=== PATIENT | female | born 1945 | race Caucasian/White ===

== ENCOUNTER 2018-02-17 21:02 | Emergency (ER) | payer OTHER ==
--- OUTSIDE RECORDS SUMMARY | 2018-02-17 21:04 | XMS REPORT | Summary of Care ---
:1945 Author Organization [facility] Address [id number] [place] [address], [address] [address]- Encounter HQ Lacey(FIN) [phone] Date(s): 02/25/17 - 02/25/17 [facility] [id number] [place] [address], [address] [address]- [phone] Discharge Disposition: Home or Self Care Attending Physician: Sharonda Salazar MD Vital Signs Most recent to oldest [Reference Range]: 1 Height 154.94 cm (02/25/17 1:45 PM) Temperature Oral [96.4-99.1 DegF] 97.4 DegF (02/25/17 1:45 PM) Blood Pressure [90-140/60-90 mmHg] 131/84 mmHg (02/25/17 1:45 PM) Peripheral Pulse Rate [60-100 bpm] 89 bpm (02/25/17 1:45 PM) Weight 77.727 kg (02/25/17 1:45 PM) Body Mass Index 32.38 m2 (02/25/17 1:45 PM) Problem List Condition Effective Dates Status Health Status Informant Arthritis(Confirmed) Resolved Asthma(Confirmed) Resolved Bronchiectasis(Confirmed) Active CLL (chronic lymphocytic Active leukemia)(Confirmed) Hypertension(Confirmed) Resolved Mycobacterium avium Active infection(Confirmed) Leukemia(Confirmed) Resolved Obesity(Confirmed) Active Osteopenia(Confirmed) Active Osteopetrosis(Confirmed) Resolved Osteoporosis(Confirmed) < 06/25/15 Resolved Prediabetes(Confirmed) Active Allergies, Adverse Reactions, Alerts Substance Reaction Severity Status penicillins Active Medications Diovan HCT 12.5 mg-320 mg oral tablet 1 tab, PO, Daily, # 90 tab, 1 Refill(s), Pharmacy: [facility] [id number] Start Date: 02/25/17 Status: OrderedVerelan PM 300 mg/24 hours oral capsule, extended release 300 mg=1 cap, PO, Bedtime, # 90 caplet, 1 Refill(s), Pharmacy: [id number] Start Date: 02/25/17 Status: Ordered Results No data available for this section Immunizations Given and Recorded Vaccine Date Status Refusal Reason influenza virus vaccine, inactivated1 11/16/16 Recorded 1Result Comment: [01/04/2017] at [facility] Procedures Procedure Date Related Diagnosis Body Site Status Date of last mammogram1 12/14/16 Completed Mammogram2 12/14/16 Completed Glaucoma screening3 10/25/16 Completed Colonoscopy 02/2015 Completed History of back surgery Completed Right leg Completed 1negative for malignancy, done at [address], [email or web address], follows with optho in Dr.Leilin Braeden Social History Social History Type Response Exercise Exercise duration: 30. Exercise frequency: 3-4 times/week. Exercise type: Walking. Employment/School Status: Retired.1 Alcohol Current, Frequency: 1-2 times per week. Smoking Status Former smoker; Exposure to Tobacco Smoke None; Cigarette Smoking Last 365 Days No; Reg Smoking Cessation Counseling No entered on: 02/25/17 1married Assessment and Plan No data available for this section
--- OUTSIDE RECORDS SUMMARY | 2018-02-17 21:04 | XMS REPORT | Clinical Summary ---
:1945 Author Organization [facility] Address [address] [place] [address] Care Team Providers Name Role Phone Unavailable Primary Care Provider Unavailable Allergies Not on File Medications Not on file Active Problems Not on file Encounters Date Type Specialty Care Team Description 02/03/2018 Lab Lab Lars Castro MD Dyspnea, unspecified type (Primary Dx); Acute respiratory insufficiency after 02/16/2017 Social History Tobacco Use Types Packs/Day Years Used Date Never Assessed Sex Assigned at Date Recorded Not on file Job Start Date Occupation Industry Not on file Not on file Not on file Travel History Travel Start Travel End No recent travel history available. Last Filed Vital Signs Not on file Plan of Treatment Health Maintenance Due Date Last Done Comments BREAST CANCER SCREENING 1994 COLON CANCER SCREENING 1994 SHINGLES VACCINES (1 of 2) 1994 PNEUMOCOCCAL POLYSACCHARIDE VACCINE AGE 65 2009 AND OVER PNEUMOCOCCAL-13 2009 INFLUENZA VACCINE Completed 10/18/2017, 11/07/2012 Procedures Procedure Name Priority Date/Time Associated Diagnosis Comments IMMUNCAP SCORE Routine 02/03/2018 3:00 Results for this PM [facility] procedure are in the results section. MISCELLANEOUS REFERRAL Routine 02/03/2018 3:00 Dyspnea, unspecified Results for this TEST [facility] type procedure are in Acute respiratory the results insufficiency section. EOSINOPHIL COUNT Routine 02/03/2018 3:00 Dyspnea, unspecified Results for this ABSOLUTE PM [facility] type procedure are in Acute respiratory the results insufficiency section. IMMUNOGLOBULIN E Routine 02/03/2018 3:00 Dyspnea, unspecified Results for this PM [facility] type procedure are in Acute respiratory the results insufficiency section. ANTI-NEUTROPHILIC Routine 02/03/2018 3:00 Dyspnea, unspecified Results for this CYTOPLASMIC ABS PANEL [facility] type procedure are in Acute respiratory the results insufficiency section. ALLERGEN, REGION 10 Routine 02/03/2018 3:00 Dyspnea, unspecified Results for this RESPIRATORY KENNEY IGE PM [facility] type procedure are in Acute respiratory the results insufficiency section. after 02/16/2017 Results Allergen, region 10 respiratory kenney IgE (02/03/2018 3:00 PM [facility]) IgE 11 <=214 [facility] Comment: REFERENCE INTERVAL: Immunoglobulin E, Serum Access complete set of age- and/or gender-specific reference intervals for this test in the [facility] Test Directory ([employer]). Allergen, mites, D. farinae <0.10 <=0.34 [facility] IgE Allergen, mites, D. <0.10 <=0.34 [facility] pteronyssinus IgE Allergen, animal, cat dander 0.29 <=0.34 [facility] IgE Allergen, animal, dog dander 0.94 (H) <=0.34 [facility] IgE Allergen, grass, [place] 0.11 <=0.34 [facility] grass IgE Allergen, grass, Alfred <0.10 <=0.34 [facility] grass IgE Allergen, insect, cockroach, <0.10 <=0.34 [facility] Lithuanian IgE Allergen, fungi/mold, A. <0.10 <=0.34 [facility] alternata IgE Allergen, fungi/mold, A. <0.10 <=0.34 [facility] fumigatus IgE Allergen, fungi/mold, <0.10 <=0.34 [facility] Hormodendrum IgE Allergen, fundi/mold, P. <0.10 <=0.34 [facility] notatum IgE Allergen, tree, box <0.10 <=0.34 [facility] elder/maple tree IgE Allergen, tree, birch tree <0.10 <=0.34 [facility] IgE Allergen, tree, cottonwood <0.10 <=0.34 [facility] tree IgE Allergen, tree, elm tree IgE <0.10 <=0.34 [facility] Allergen, tree, mountain <0.10 <=0.34 [facility] cedar tree IgE Allergen, tree, white <0.10 <=0.34 [facility] mulberry tree IgE Allergen, tree, oak tree IgE 0.13 <=0.34 [facility] Allergen, tree, pecan tree <0.10 <=0.34 [facility] IgE Allergen, tree, white josh 0.13 <=0.34 [facility] tree IgE Allergen, weed, pigweed IgE <0.10 <=0.34 [facility] Allergen, weed, common/short <0.10 <=0.34 [facility] ragweed IgE Allergen, weed, nettle IgE <0.10 <=0.34 [facility] Rough marshelder <0.10 <=0.34 [facility] Allergen, weed, sheep sorrel <0.10 <=0.34 [facility] IgE Allergen, animal, mouse <0.10 <=0.34 [facility] epithelium IgE Allergen, fungi/mold, M. <0.10 <=0.34 [facility] racemosus IgE Allergen, food, peanut IgE <0.10 <=0.34 [facility] Allergen, food, milk (cow) <0.10 <=0.34 [facility] IgE Comment: Performed by [facility], [address] [place] [id number] www.[email or web address], Mihir Pleitez MD - Lab. Director Specimen Serum Performing Organization Address City/State/Zipcode Phone Number [facility] [address] [phone] [place] [facility] [address] [phone] Miscellaneous referral test (02/03/2018 3:00 PM [facility]) [facility] [place] name Cystic Fibrosis 165 Pathogenic [facility] test result SEE NOTE [facility] Comment: Cystic Fibrosis (CFTR) 165 Pathogenic Variants [facility] test code [id number] Cystic Fibrosis, Allele 1 Negative - - - - - - - - - - - - - - - - - - - - - - - - - - - - - - Cystic Fibrosis, Allele 2 Negative - - - - - - - - - - - - - - - - - - - - - - - - - - - - - - Cystic Fibrosis 5T Variant Negative - - - - - - - - - - - - - - - - - - - - - - - - - - - - - - Cystic Fibrosis, 165 Variants, Interp See Note According to information provided to [facility], this patient is a 72 year old female with bronchiectasis. No pathogenic cystic fibrosis (CF) variants, including the mild 5T variant, were identified by the CF 165 variant panel. Individuals with CFTR-related disorders may have mild variants that are not detected using a CF panel designed to detect variants in classically affected individuals. Consideration should be given to CFTR full gene sequencing ([facility] test code [id number]), which detects 97% of CFTR variants, if mild CF remains a possible explanation for the patient's symptoms. Specimen: Whole Blood Symptoms: Yes Ethnicity: Family History: Unknown This result has been reviewed and approved by Merritt Contreras, Ph.D. BACKGROUND INFORMATION: Cystic Fibrosis (CFTR), 165 Pathogenic Variants CHARACTERISTICS OF CLASSIC CYSTIC FIBROSIS (CF): Chronic sino-pulmonary disease, gastrointestinal malabsorption/pancreatic insufficiency, and obstructive azoospermia. Symptoms of a CFTR-related disorder are often limited to a single organ system such as isolated pancreatitis, bilateral absence of the vas deferens, nasal polyposis, or bronchiectasis. INCIDENCE: 1 in 2,300 Ashkenazi Holiness, 1 in 2,500 Caucasians, 1 in 13,500 Hispanics, 1 in 15,100 Americans, 1 in 35,100 Asians. INHERITANCE: Autosomal recessive. PENETRANCE: High for severe pathogenic variants, variable for moderate or mild pathogenic variants. Cause of Classic CF: Two severe, or one severe and one moderate, pathogenic CFTR variants on opposite chromosomes. Cause of CFTR-Related Disorder: Two pathogenic CFTR variants on opposite chromosomes; two mild, one mild and one severe or one mild and one moderate. PATHOGENIC VARIANTS TESTED: *Note: variants are listed by standard nomenclature. Legacy names are also provided for the 23 recommended ACMG variants. c.1A>G, p.Zjy5Inf; c.44-1048_423+44803udi, Exons 2-3del; c.115C>T, p.Gln39X; c.178G>T, p.Glu60X; c.200C>T, p.Hza30Ahj; c.223C>T, p.Arg75X; c.254G>A (Legacy G85E), p.Upi42Stl; c.262_263delTT, p.Eiu90BqqdfJ84 (aka p.Yta04po); c.273+1G>A, Intronic; c.273+3A>C, Intronic; c.274-1G>A, Intronic; c.274G>A, p.Jau71Oxk; c.274G>T, p.Glu92X; c.292C>T, p.Gln98X; c.313delA, p.Nzp127CyimuT8 (aka p.Oox074mr); c.325_327delTATinsG, p.Xqe380FuipxI6 (aka p.Oxw683my); c.328G>C, p.Arm846Pfh; c.349C>T, p.Bre550Ktn; c.350G>A (Legacy R117H), p.Mtt524Ixk; c.366T>A, p.Mgf696J; c.442delA, p.Ljo454KhuicR9 (aka p.Sne712zu); c.489+1G>T (Legacy 621+1G>T), Intronic; c.531delT, p.Pwo800OnhhjQ94 (aka p.Zyc692ax); c.532G>A, p.Kzd390Erk; c.579+1G>T (Legacy 711+1G>T), Intronic; c.579+5G>A, Intronic; c.579+3A>G, Intronic; c.580-1G>T, Intronic; c.595C>T, p.Ztr331Dit; c.613C>T, p.Azs221Vua; c.617T>G, p.Brt554Cub; c.658C>T, p.Mmi213U; c.680T>G, p.Jue264Cto; c.720_741delAGGGAGAATGATGATGAAGTAC, p.Bmh702QttxbJ25 (aka p.Cal230xw); c.803delA, p.Khp671ZwndpX86 (aka p.Pfr973hi); c.805_806delAT, p.Avv962QfywsU3 (aka p.Eyu009xw); c.933_935delCTT, p.Wms094rxk; c.948delT, p.Thh683EsnfcR51 (aka p.Kvr023bb); c.988G>T, p.Rem291T; c.1000C>T (Legacy R334W), p.Fwn092Cob; c.1007T>A, p.Sdh611Jig; c.1021T>C, p.Bfi926Iis; c.1022_1023insTC, p.Rol977ImoypW12 (aka p.Mjn331jh); c.1040G>A, p.Udt672Ere; c.1040G>C (Legacy R347P), p.Zkf339Ywp; c.1055G>A, p.Rql271Dce; c.1081delT, p.Kxd122YscjpS0 (aka p.Nss603sg); c.1116+1G>A, Intronic; c.1127_1128insA, p.Zgd688RezwnO2 (aka p.Qfx254nw); c.1153_1154insAT, p.Wya576MqwgpN6 (aka p.Clv153to); c.1202G>A, p.Fck923A; c.1203G>A, p.Obw257S; c.1209+1G>A, Intronic; c.1329_1330insAGAT, p.Qkp987UarviM2 (aka p.Soj059aw); c.1340delA, p.Tci823AodtzF3 (aka p.Nmx778wr); c.1364C>A (Legacy A455E), p.Yrm784Vhy; c.1393-1G>A, Intronic; c.1397C>A, p.Cds799I; c.1397C>G, p.Jjq357W; c.1400T>C, p.Icr933Jfm; c.1418delG, p.Lqa939PnqlkZ77 (aka p.Sjm314df); c.1438G>T, p.Dox068Ktg; c.1466C>A, p.Mdc467O; c.1475C>T, p.Mbz899Lxf; c.1477C>T, p.Gwu073B; c.1519_1521delATC (Legacy X302urt), p.Olk397eoq; c.1521_1523delCTT (Legacy D379tvl), p.Rne823ocn; c.1545_1546delTA, p.Wce423T; c.1558G>T, p.Dty869Twn; c.1572C>A, p.Qjm884D; c.1573C>T, p.Pus041T; c.1585-1G>A (Legacy 1717-1G>A), Intronic; c.1585-8G>A, Intronic; c.1624G>T (Legacy G542X), p.Bab414N; c.1645A>C, p.Scy825Mbo; c.1646G>A, p.Dvi604Rec; c.1647T>G, p.Flu880Qtp; c.1651G>A, p.Fou117Ajy; c.1652G>A (Legacy G551D), p.Aku916Zhk; c.1654C>T, p.Uem147C; c.1657C>T (Legacy R553X), p.Vpl041U; c.1675G>A, p.Ybk196Hfw; c.1679G>A, p.Ess272Mtf; c.1679G>C (Legacy R560T), p.Lfz686Bkh; c.1679+1.6kbA>G, Intronic; c.1680-1G>A, Intronic; c.1703delT, p.Gwy329TkvilO3 (aka p.Niw333pw); c.1705T>G, p.Adt803Whd; c.1721C>A, p.Qzx576Eap; c.1753G>T, p.Fiv175R; c.1766+1G>A (Legacy 1898+1G>A), Intronic; c.1766+3A>G, Intronic; c.1792_1798delAAAACTA, p.Vqz816OyhcjE17 (aka p.Ctl383bu); c.1911delG, p.Qhx580QlizsQ83 (aka p.Kpv319qw); c.1923_1931del9insA, p.Zwf977BlfmrQ9 (aka p.Hmo870rl); c.1972_1984del13insAGAAA, p.Rcr576MiqxtP9 (aka p.Gnd035lf); c.1975delA, p.Xpd771IegmnV1 (aka p.Ixo706xo); c.2011delT, p.Psb518I; c.2050_2del, p.Iom784HgrviP1; c.2050_2delinsG (aka c.2051_elinsG), p.Gka090TtspvU18; c.2052delA (Legacy 2184delA), p.Kum243GmwonS58; c.2125C>T, p.Szf630N; c.2128A>T, p.Npy193U; c.2175_2176insA, p.Vvw616QgfujD8 (aka p.Jqg099vt); c.2195T>G, p.Kbk669I; c.2215delG, p.Pqo812BudqeQ72 (aka p.Fcu150td); c.2290C>T, p.Ktg337Dvd; c.2453delT, p.Yfl249QdenxJ4 (aka p.Nki307xw); c.2464G>T, p.Fkv240P; c.2490+1G>A, Intronic; c.2491G>T, p.Aiu543X; c.2537G>A, p.Ijn415U; c.2538G>A, p.Zpg014T; c.2551C>T, p.Zbh054N; c.2583delT, p.Vvw135DryxcX8 (aka p.Ppz135hr); c.2657+5G>A (Legacy 2789+5G>A), Intronic; c.2668C>T, p.Web602H; c.2737_2738insG, p.Fal674X; c.2780T>C, p.Jvj036Lgz; c.2810_2811insT, p.Sme058HixvvF56 (aka p.Asy611rf); c.2834C>T, p.Raf110Wte; c.2875delG, p.Kei064LlrrgM1 (aka p.Apl139fq); c.2908G>C, p.Geb117Yvk; c.2988+1G>A (Legacy 3120+1G>A), Intronic; c.2988G>A, Intronic; c.2989-1G>A, Intronic; c.3039delC, p.Wsk5949TihthV4 (aka p.Wxa3987rz); c.3067_3072delATAGTG, p.Mut7440_Smi3361ini (aka M8712_A7859ysf); c.3140-26A>G, Intronic; c.3194T>C, p.Vvq9154Mmj; c.3196C>T, p.Esi9885Wzi; c.3197G>A, p.Cgf3075Srf; c.3230T>C, p.Vog6194Oqs; c.3266G>A, p.Hdw0067A; c.3276C>A, p.Ryh8799U; c.3276C>G, p.Jov5460D; c.3302T>A, p.Joj5206Ghf; c.3310G>T, p.Lfg1973M; c.3472C>T, p.Ouv7026D; c.3484C>T (Legacy O6828J), p.Ewy2793Y; c.3528delC (Legacy 3659delC), p.Tel1425DxbixM84 (aka p.Qho5205cl); c.3536_3539del, p.Tvv8191BxqllU70 (aka p.Arq8456bk); c.3587C>G, p.Tgt6401X; c.3611G>A, p.Olq4273Y; c.3612G>A, p.Wrw1698D; c.3659delC, p.Exq3447KimzpC3 (aka p.Xdy7232yx); c.3691delT, p.Qib0176XwemaI9 (aka p.Ejh0304hu); c.3712C>T, p.Yhq1161F; c.3718-7997C>T (Legacy 3849+10kbC>T), Intronic; c.3731G>A, p.Prw5141Tow; c.3744delA, p.Kaz5675ZlfxgB1 (aka p.Ylv5791dh); c.3752G>A, p.Uvj8051Sox; c.3763T>C, p.Tex6886Kdt; c.3764C>A, p.Xbw5538C; c.3773_3774insT, p.Wuj3627ZzxfdA8 (aka p.Cwz7619ku); c.3846G>A (Legacy T7971S), p.Hkb1161T; c.3873+1G>A, Intronic; c.3909C>G (Legacy L8903Y), p.Fdt1480Fhd; c.3937C>T, p.Slh5670T; c.3964-78_4242+577del, Exons 22-23del; c.4028delG, p.Vjl7371JkfueC3 (aka p.Wom8858lq); c.4046G>A, p.Kze9990Cht; c.4077_4080delTGTTinsAA, p.Zyh1895kaE2 (aka p.Qlm1970va); c.4111G>T, p.Cri1724F; c.4251delA, p.Htr2163YttgxF14 (aka p.Eoj1233hp). The IVS-8 variant, c.5440-12[5], will be reported only when R117H is detected or in patients who are reported to be symptomatic. CLINICAL SENSITIVITY: [place] 96 percent; 92 percent; 80 percent; 78 percent; Martiniquais 55 percent. METHODOLOGY: Polymerase chain reaction (PCR) and fluorescence monitoring. Analytical Sensitivity & Specificity: 99 percent. LIMITATIONS: Diagnostic errors can occur due to rare sequence variations. Only the 165 pathogenic CFTR variants and 5T variant (listed above) will be interrogated. See Compliance Statement C: [email or web address]/CS Test performed by: [facility] [address] [place], [id number] Performing Organization Address City/State/Zipcode Phone Number [facility] [address] [place] [address] [facility] [address] [place] [address] Immuncap score (02/03/2018 3:00 PM [facility]) Immunocap score See Note [facility] Comment: REFERENCE INTERVAL: Allergen, Interpretation Less than 0.10 kU/L......Class 0.....No significant level detected 0.10-0.34 kU/L...........Class 0/1...Clinical relevance undetermined 0.35-0.70 kU/L...........Class 1.....Low 0.71-3.50 kU/L...........Class 2.....Moderate 3.51-17.50 kU/L..........Class 3.....High 17.51-50.00 kU/L.........Class 4.....Very High 50.01-100.00 kU/L........Class 5.....Very High Greater than 100.00kU/L..Class 6.....Very High Allergen results of 0.10-0.34 kU/L are intended for specialist use as the clinical relevance is undetermined. Even though increasing ranges are reflective of increasing concentrations of allergen-specific IgE, these concentrations may not correlate with the degree of clinical response or skin testing results when challenged with a specific allergen. The correlation of allergy laboratory results with clinical history and in vivo reactivity to specific allergens is essential. A negative test may not rule out clinical allergy or even anaphylaxis. Performed by [facility], [address] [place] [address] www.[employer], Mihir Pleitez MD - Lab. Director Specimen Serum Performing Organization Address City/[facility]/[place] Phone Number [facility] [address] [place] [address] [facility] [address] [place] [address] Eosinophil count absolute (02/03/2018 3:00 PM [facility]) Eosinophils, absolute 0.38 0.00 - 0.55 K/uL [facility] Specimen Blood Performing Organization Address City/[facility]/[place] Phone Number [facility] DEPARTMENT OF PATHOLOGY AND [address] [place] [address] Anti-neutrophilic cytoplasmic Abs panel (02/03/2018 3:00 PM [facility]) ANCA screen Negative Negative [facility] Specimen Blood Performing Organization Address [facility]/[place] Phone Number [facility] DEPARTMENT OF PATHOLOGY AND [address] [place] [address] Immunoglobulin E (02/03/2018 3:00 PM [facility]) IgE 10.6 0.0 - 100.0 IU/mL [facility] Specimen Serum Performing Organization Address [facility]/[place] Phone Number [facility] DEPARTMENT OF PATHOLOGY AND [address] [place] [address] after 02/16/2017 Insurance Payer Benefit Plan / Group Subscriber ID Type Phone Address AETNA AETNA PPO OPEN CHOICE xxxxxxxx PPO [address] (Home) [place] [phone] [place] [address] (Work) Advance Directives Patient has advance care planning documents on file. For more information, please contact:Bradley Guadalupe[address] [place] [address]
--- OUTSIDE RECORDS SUMMARY | 2018-02-17 21:04 | XMS REPORT | Summary of Care ---
:[address] [facility] Address [address] [place] [address], [address] [address]- Encounter HQ Chacortar_ramon(FIN) [id number] Date(s): 01/04/17 - 01/04/17 [facility] [address] [place] [address], [address] [address]- [phone] Discharge Disposition: Home or Self Care Attending Physician: Sharonda Salazar MD Vital Signs Most recent to oldest [Reference Range]: 1 Height 154.94 cm (01/04/17 10:50 AM) Temperature Oral [96.4-99.1 DegF] 97.5 DegF (01/04/17 10:50 AM) Blood Pressure [90-140/60-90 mmHg] 119/70 mmHg (01/04/17 10:50 AM) Peripheral Pulse Rate [60-100 bpm] 77 bpm (01/04/17 10:50 AM) Weight 75.909 kg (01/04/17 10:50 AM) Body Mass Index 31.62 m2 (01/04/17 10:50 AM) Problem List Condition Effective Dates Status Health Status Informant Arthritis(Confirmed) Resolved Asthma(Confirmed) Resolved Screening for breast Active cancer(Confirmed) Bronchiectasis(Confirmed) Active CLL (chronic lymphocytic Active leukemia)(Confirmed) Depression(Confirmed) Active Hypertension(Confirmed) Resolved Mycobacterium avium Active infection(Confirmed) Leukemia(Confirmed) Resolved Medicare annual wellness visit, Active subsequent(Confirmed) Obesity(Confirmed) Active Osteopenia(Confirmed) Active Osteopetrosis(Confirmed) Resolved Osteoporosis(Confirmed) < 18/16 Resolved Allergies, Adverse Reactions, Alerts Substance Reaction Severity Status penicillins Active Medications citalopram 20 mg oral tablet 20 mg=1 tab, PO, Daily, # 90 tab, 2 Refill(s), Pharmacy: [facility] [id number] Start Date: 12/31/16 Status: Ordered Results No data available for this section Immunizations Given and Recorded Vaccine Date Status Refusal Reason influenza virus vaccine, inactivated1 11/16/16 Recorded 1Result Comment: [01/04/2017] at [facility] Procedures Procedure Date Related Diagnosis Body Site Mammogram1 12/14/16 Glaucoma screening2 10/25/16 Colonoscopy 02/2015 History of back surgery Right leg [facility], [id number], follows with optho in Dr.Leilin Braeden Social History Social History Type Response Exercise Exercise duration: 30. Exercise frequency: 3-4 times/week. Exercise type: Walking. Employment/School Status: Retired.1 Alcohol Current, Frequency: 1-2 times per week. Smoking Status Former smoker; Exposure to Tobacco Smoke None; Cigarette Smoking Last 365 Days No; Reg Smoking Cessation Counseling No 1married Assessment and Plan No data available for this section
--- OUTSIDE RECORDS SUMMARY | 2018-02-17 21:04 | XMS REPORT | Summary of Care ---
:1945 Author Organization [facility] [place] Address [facility] [place], [place] [address]- Encounter HQ Encntr_alias(FIN) [id number] Date(s): 02/12/16 - 02/12/16 [facility] Outpatient Imaging [address], [address] [place] [address]- [phone] Discharge Disposition: Home or Self Care Attending Physician: Sharonda Salazar MD Vital Signs No data available for this section Problem List Condition Effective Dates Status Health Status Informant Arthritis(Confirmed) Resolved Asthma(Confirmed) Resolved Bronchiectasis(Confirmed) Active CLL (chronic lymphocytic Active leukemia)(Confirmed) Depression(Confirmed) Active Hypertension(Confirmed) Resolved Mycobacterium avium Active infection(Confirmed) Leukemia(Confirmed) Resolved Obesity(Confirmed) Active Osteopetrosis(Confirmed) Resolved Osteoporosis(Confirmed) Active Allergies, Adverse Reactions, Alerts Substance Reaction Severity Status penicillins Active Medications No data available for this section Results No data available for this section Immunizations No data available for this section Procedures Procedure Date Related Diagnosis Body Site History of back surgery Right leg Social History Social History Type Response Employment/School Status: Retired. Smoking Status Former smoker; Exposure to Tobacco Smoke None; Cigarette Smoking Last 365 Days No; Reg Smoking Cessation Counseling No Assessment and Plan No data available for this section
--- OUTSIDE RECORDS SUMMARY | 2018-02-17 21:04 | XMS REPORT | Continuity of Care Document ---
:1945 Author Organization Interface Problems Problem Status Onset Classification Date Comments Source Date Reported M81.0 - Active 12/25/19 [facility] AGE-RELATED 16 [place] OSTEOPOROSIS W/O C Osteoporosis Resolved 06/25/19 Problem 08/06/2017 [facility] Arthritis Resolved Problem 08/06[facility]2017 [facility] Asthma Resolved Problem 08/06/2017 [facility] Bronchiectasis Active Problem 08/06/2017 [facility] CLL (<span Active Problem 08/06/2017 [facility] ID[facility][id number]" [facility]span[facility] ) Group Hypertension Resolved Problem 08/06/2017 [facility] 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 [facility] Leukemia Resolved Problem 08/06/2017 [facility] Obesity Active Problem 08/06/2017 [facility] Osteopenia Active Problem 08/06/2017 [facility] 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 [facility] Prediabetes Active Problem 08/06/2017 Medical Group Screening for Active Problem 01/07/2017 [facility] breast cancer [facility] Depression Active Problem 01/07/2017 [facility] Medicare annual Active Problem 01/07/2017 Medical wellness visit, Group subsequent Medications Medication Details Route Status Patient Ordering Order Source Instructions Provider Date Raloxifene 60 mg=1 Active 08/03/ Hydrochloride 60 MG tab, PO, 2018 Medical Oral Tablet [Evista] Daily, # 90 Group tab, 3 Refill(s), Pharmacy: [id number] 24 HR Verapamil 300 mg=1 Active 02/25/ hydrochloride 300 MG cap, PO, 2018 Medical Extended Release Bedtime, # Group Capsule [Verelan] 90 caplet, 1 Refill(s), Pharmacy: [id number] Hydrochlorothiazide 1 tab, PO, Active 02/25/ 12.5 MG / valsartan Daily, # 90 2018 Medical 320 MG Oral Tablet tab, 1 Group [Diovan HCT 320/12.5] Refill(s), Pharmacy: [facility] [id number] citalopram 20 mg oral 20 mg=1 Active 12/31/ tablet tab, PO, 2017 Medical Daily, # 90 Group tab, 2 Refill(s), Pharmacy: [facility] [id number] Allergies, Adverse Reactions, Alerts Substance Category Reaction Severity Reaction Status Date Comments Source type Reported penicillins Assertion Drug Active allergy Medical Group Immunizations Immunization Date Given Site Status Last Updated Comments Source influenza virus 11/16/2016 completed Verenice Result Medical vaccine, Comment: Group inactivated<sup>1 [01/04/2017] </sup> at [facility] Results Order Results Value Reference Date Interpretation Comments Source Name Range Breast Breast 01/16 - [facility] Mammo Mammo /2017 - [facility] Sc[facility] SHITAL Scrn SHITAL w aurelio w aurelio incl CAD incl CAD Read by: Nivia Mazariegos MD, MA MA Dictated Date/time: 01/16/18 13:29 BILATERAL DIGITAL SCREENING MAMMOGRAM 3D/2D WITH CAD: 01/16/2018 Electronically Signed by: Nivia Mazariegos MD 01/16/18 13 :29 FINAL REPORT CLINICAL: /Z12.31. Current study was evaluated with a Computer Aided Detection (CAD) system. COMPARISON:Comparison is made to exam dated: 02/12/2016 mammogram. TECHNIQUE: Digital Breast Tomosynthesis was performed and utilized for Interpretation. Current study was also evaluated with a Computer Aided Detection (CAD) system. FINDINGS: The tissue of both breasts is almost entirely fat. There are stable benign appearing calcifications in both breasts. No significant masses, calcifications, or other findings are seen in either breast. There has been no significant interval change. IMPRESSION: BENIGN RECOMMENDATION:There is no mammographic evidence of malignancy. A 1 year screening mammogram is recommended.(01/17/2019) This exam was interpreted at [id number] for WILBER Jimenez 15. Professional services are provided by the [facility]. Nivia Mazariegos M.D. mk/penrad:01/16/2018 13:29:22 Line Ordering Clinician(s): Carolina Hinojosa [place] letter sent: BI-RADS 1/2 Mammogram BI-RADS: 2 Benign Bone Bone 01/16 - [facility] Density Density /2017 - [place] DXA Dual DXA Dual Energy MA Energy MA BONE DENSITY ASSESSMENT: 01/16/2018 Read by: Nivia Mazariegos MD Dictated Date/time: 01/16/18 13:25 Electronically Signed by: Nivia Mazariegos MD 01/16/18 13:25 FINAL REPORT CLINICAL DATA: Post menopausal and clinical risk for osteoporosis. Z78.0 asymptomatic postmenopausal state. /Z78.0 RISK FACTORS: race. FINDINGS: Bone density evaluation was performed 01/16/2018 on the left distal radius using a Hologic unit. The BMD average for the exam is 0.422 g/cm2. The T-score is -2.90 and the Z-score is -0.60. This matche s the World Health Organization's criteria for osteoporosis and places the patient at a high risk for fracture. An additional bone density evaluation was performed 01/16/2018 on the right femur neck using a Hologic unit. The BMD average for the exam is 0.660 g/ cm2. The T-score is -1.70 and the Z-score is 0.30. This matches the World Health Organization's criteria for osteopenia and places the patient at a medium risk for fracture. An additional bone density evaluation was performed 01/16/2018 on the left femur neck using a Hologic unit. The BMD average for the exam is 0.666 g/cm2. The T-score is -1.70 and the Z-score is 0.40. T his matches the World Health Organization's criteria for osteopenia and places the patient at a medium risk for fracture. An additional bone density evaluation was performed 01/16/2018 on the right total femur area using a Hologic unit. The BMD average for the exam is 0.659 g/cm2. The T-score is -2.30 and the Z-score is - 0.60. This matches the World Health Organization's criteria for osteopenia and places the patient at a medium risk for fracture. An additional bone density evaluation was performed 01/16/2018 on the left total femur area using a Hologic unit. The BMD average for the exam is 0.705 g/ cm2. The T-score is -1.90 and the Z-score is -0 .20. This matches the World Health Organization's criteria for osteopenia and places the patient at a medium risk for fracture. FRAX 10 year probability of major osteoporotic fracture is 11% and hip fracture is 2%. IMPRESSION: OSTEOPOROSIS Patient is at high risk for fracture. This exam was interpreted at [id number] for KAROLINA Ricci, WILBER 15. Nivia garibay/silvestre:01/16/2018 13:25:08 Line Ordering Clinician(s): Tia Gordon [facility] Shoulder Shoulder Study: Left shoulder, 3 views 12/15 - [facility] series DX series DX /2016 - [place] Clinical Indication: - LEFT SHOULDER PAIN Read by: Moi Josue MD Dictated Date/time: 12/15/16 14:09 Electronically Signed by: Moi Josue MD 12/15/16 14:10 FINAL REPORT Comparison: None FINDINGS: Multiple views of the left shoulder show no acute bony fracture, joint dislocation, or suspicious osseous lesion. Moderate AC joint osteoarthrosis is seen. Bones are demineralized. Soft tissue s are unremarkable. Calcified granuloma in the periphery of the left midlung is noted. IMPRESSION: 1. No acute bony abnormality of the left shoulder. 2. Moderate AC joint osteoarthrosis. SL: [id number] Bone Bone - Bone Density DXA Dual Energy MA 02/11 - [facility] Density Density /2016 - [place] DXA Dual DXA Dual BONE DENSITY EVALUATION: 02/12/2016 Energy MA Energy MA Read by: James Stout MD Dictated Date/time: 02/13/16 10:58 CLINICAL DATA: Osteoporosis. Electronically Signed by: James Stout MD 02/13/16 10:58 FINAL REPORT RISK FACTORS: race. FINDINGS: Bone density evaluation was performed 02/12/2016 on the right femur neck using a Hologic unit. The BMD average for the exam is 0.658 g/cm2. The T-score is -1.70 and the Z-score is 0.20. This matches t he World Health Organization's criteria for osteopenia and places the patient at a medium risk for fracture. An additional bone density evaluation was performed 02/12/2016 on the right total femur area using a Hologic unit. The BMD average for the exam is 0.689 g/cm2. The T-score is -2.10 and the Z-score is - 0.50. This matches the World Health Organization's criteria for osteopenia and places the patient at a medium risk for fracture. An additional bone density evaluation was performed 02/12/2016 on the left femur neck using a Hologic unit. The BMD average for the exam is 0.704 g/cm2. The T-score is -1.30 and the Z-score is 0.60. T his matches the World Health Organization's criteria for osteopenia and places the patient at a medium risk for fracture. An additional bone density evaluation was performed 02/12/2016 on the left total femur area using a Hologic unit. The BMD average for the exam is 0.753 g/ cm2. The T-score is -1.60. This matches the Wo d Health Organization's criteria for osteopenia and places the patient at a medium risk for fracture. IMPRESSION: OSTEOPENIA Patient is at medium risk for fracture. Professional services are provided by the [facility] [place] [facility]. This exam was dictated and interpreted by [id number] for WILBER Jimenez. Alex Cerrato M.D., cm/silvestre:02/13/2016 10:58:55 Line Ordering Clinician: Carolina Hinojosa Vital Signs Vital Sign Value Date Comments Source BMI Calculated 32.38 02/25/2017 Medical Group Weight 77.727 02/25/2017 Medical Group Height 154.94 cm 02/25/2017 Medical Group Temperature Oral (F) 97.4 F 02/25/2017 Medical Group Heart Rate 89 02/25/2017 Medical Group Systolic (mm Hg) 131 02/25/2017 Medical Group Diastolic (mm Hg) 84 02/25/2017 Medical Group Weight 75.909 01/04/2017 Medical Group BMI Calculated 31.62 01/04/2017 Medical Group Height 154.94 cm 01/04/2017 Medical Group Heart Rate 77 01/04/2017 [facility] Group Temperature Oral (F) 97.5 F 01/04/2017 Medical Group Systolic (mm Hg) 119 01/04/2017 Medical Group Diastolic (mm Hg) 70 01/04/2017 Medical Group Encounters Location Location Encounter Encounter Reason Attending ADM DC Status Source Details Type Number For Provider Date Date Visit Outpatient [id number] HARLEY 12/22 Active [facility] [place] [facility] [id number] Harley 02/11 02/12 [facility] Outpatient Services Verenice /2016 [facility] Outpatient [id number] HARLEY 03/01 Active [facility] [place] Outpatient [id number] HARLEY 09/01 Active [facility] [place] Outpatient [id number] AKI 12/15 [facility] [place] [facility] Outpt Diag [id number] Aki 12/15 12/16 [facility] [place] [facility] [id number] HARLEY 01/04 Active [facility] [place] [facility] Outpatient [id number] Harley 01/04 01/05 Primary Verenice /2016 [facility] Outpatient [id number] HARLEY 02/25 Active [facility] [place] [facility] Outpatient [id number] Harley 02/25 02/26 Primary Verenice /2017 [facility] Phone [id number] 08/02 08/04 Primary Message /2017 [facility] Outpatient [id number] HARLEY 09/26 [facility] [place] Outpatient [id number] HARLEY 01/09 [facility] [place] Outpatient [id number] HARLEY 06/12 [facility] [place] Procedures Procedure Code Date Perfomer Comments Source Date of last [id number] 12/14/2016 negative for Medical mammogram<sup>1</s malignancy, Group up> done at [facility] Mammogram<sup>2</s [id number] [facility]/14[facility] normal Group Mammogram<sup>1</s [id number] 12/14/2016 s, Medical up> normal Group Glaucoma [id number] 10/25/2016 UTD, follows Medical screening<sup>3</s with optho in Group up> Dr.Leilin Braeden Glaucoma [id number] 10/25/2016 UTD, follows Medical screening<sup>2</s with optho in Group up> Dr.Leilin Braeden Colonoscopy [id number] 02/07/2015 Medical Group History of back [id number] [facility] surgery [place] Right leg [id number] OP[facility] [place] History of back [id number] Medical surgery Group Right leg [id number] Medical Group
--- OUTSIDE RECORDS SUMMARY | 2018-02-17 21:04 | XMS REPORT | Summary of Care ---
:1945 Author Organization [facility] Outpatient Imaging [place] Address [facility] [place], [place] [address]- Encounter HQ Encntr_alias(FIN) [id number] Date(s): 12/15/16 - 12/15/16 [facility] Outpatient Imaging [address], [address] [place] [address]- [phone] Discharge Disposition: Home or Self Care Attending Physician: Lucia Tate MSN, RN, [employer] ATTENDANT-C Vital Signs No data available for this section Problem List Condition Effective Dates Status Health Status Informant Arthritis(Confirmed) Resolved Asthma(Confirmed) Resolved Screening for breast Active cancer(Confirmed) Bronchiectasis(Confirmed) Active CLL (chronic lymphocytic Active leukemia)(Confirmed) Depression(Confirmed) Active Hypertension(Confirmed) Resolved Mycobacterium avium Active infection(Confirmed) Leukemia(Confirmed) Resolved Obesity(Confirmed) Active Osteopenia(Confirmed) Active Osteopetrosis(Confirmed) Resolved Osteoporosis(Confirmed) < 06/24/16 Resolved Allergies, Adverse Reactions, Alerts Substance Reaction [...]
--- OUTSIDE RECORDS SUMMARY | 2018-02-17 21:05 | XMS REPORT | Summary of Care ---
:1945 Author Organization [facility] Care [facility] Address [address] [place] [address], [address] [address]- Encounter HQ Encntr_alias(FIN) [id number] Date(s): 08/02/17 - 08/03/17 [facility] [address] [place] [address], [address] [address]- [phone] Vital Signs No data available for this section Problem List Condition Effective Dates Status Health Status Informant Arthritis(Confirmed) Resolved Asthma(Confirmed) Resolved Bronchiectasis(Confirmed) Active CLL (chronic lymphocytic Active leukemia)(Confirmed) Hypertension(Confirmed) Resolved Mycobacterium avium Active infection(Confirmed) Leukemia(Confirmed) Resolved Obesity(Confirmed) Active Osteopenia(Confirmed) Active Osteopetrosis(Confirmed) Resolved Osteoporosis(Confirmed) < 06/25/15 Resolved Prediabetes(Confirmed) Active Allergies, Adverse Reactions, Alerts Substance Reaction Severity Status penicillins Active Medications Evista 60 mg oral tablet 60 mg=1 tab, PO, Daily, # 90 tab, 3 Refill(s), [facility] Start Date: 08/03/17 Status: Ordered Results No data available for this section Immunizations Given and Recorded Vaccine Date Status Refusal Reason influenza virus vaccine, inactivated1 11/16/16 Recorded 1Result Comment: [01/04/2017] at [facility] Procedures Procedure Date Related Diagnosis Body Site Status Date of last mammogram1 12/14/16 Completed Mammogram2 12/14/16 Completed Glaucoma screening3 10/25/16 Completed Colonoscopy 02/2015 Completed History of back surgery Completed Right leg Completed 1negative for malignancy, done at [place] [address] [id number], follows with optho in Dr.Leilin Braeden Social [...]
[2018-02-17 22:43] LABS: Urine Blood 3+ (NEG); Urine Glucose NEGATIVE (NEG); Urine Protein 2+ (NEG)
--- NOTE | 2018-02-17 23:16 | ER ---
Nurse's Notes [facility] Name: Karlee Sena Age: 72 yrs Sex: Female : 1945 Arrival Date: 02/17/2018 Time: 21:04 Bed 26 Private MD: Diagnosis: Dysuria;Cystitis, unspecified Presentation: 02/17 21:13 Presenting complaint: Patient states: she thinks she has a UTI had symptoms starting bb today of frequency and blood in her urine. Transition of care: patient was not received from another setting of care. Onset of symptoms was February 17, 2018. Risk Assessment: Do you want to hurt yourself or someone else? Patient reports no desire to harm self or others. Initial Sepsis Screen: Does the patient meet any 2 criteria? No. Patient's initial sepsis screen is negative. Does the patient have a suspected source of infection? No. Patient's initial sepsis screen is negative. Care prior to arrival: None. 21:13 Method Of Arrival: Ambulatory bb 21:13 Acuity: STAN 4 bb Historical: - Allergies: 21:19 PENICILLINS; bb 21:19 Levaquin; bb - Home Meds: 21:19 losartan-hydrochlorothiazide 100-12.5 mg oral tab 1 tab once daily [Active]; Verelan bb 300 mg Oral 1 cap once daily [Active]; Singulair 10 mg Oral tab 1 tab once daily [Active]; citalopram 20 mg tab 1 tab once daily [Active]; alendronate 70 mg oral tab 1 tab once wkly [Active]; Advair Diskus 500-50 mcg/dose Inhl dsdv 1 puff 2 times per day [Active]; oxybutynin chloride 5 mg Oral tab 1 tab 2 times per day [Active]; aspirin 81 mg Oral chew 1 tab once daily [Active]; Albuterol Nebulizer twice a day [Active]; Ventolin Rotahaler/Rotacaps Inhl as needed [Active]; calcium [Active]; solu-medrol dose jakub [Active]; - PMHx: 21:19 Asthma; Hypertension; CLL; bb - PSHx: 21:19 back surgery x 2; neck surgery; pins in right leg; Tonsillectomy; bb - Immunization history:: Adult Immunizations up to date, Flu vaccine is up to date. Pneumococcal vaccine is up to date. - Social history:: Smoking status: Patient/guardian denies using tobacco. - Ebola Screening: : No symptoms or risks identified at this time. - Family history:: not pertinent. Screenin:25 Abuse screen: Denies threats or abuse. Nutritional screening: No deficits noted. jd3 Tuberculosis screening: No symptoms or risk factors identified. Fall Risk Ambulatory Aid- None/Bed Rest/Nurse Assist (0 pts). Gait- Normal/Bed Rest/Wheelchair (0 pts) Mental Status- Oriented to own ability (0 pts). Total Contreras Fall Scale indicates No Risk (0-24 pts). Assessment: 22:24 General: Appears in no apparent distress. comfortable, Behavior is calm, cooperative, jd3 appropriate for age. Pain: Denies pain. Neuro: Level of Consciousness is awake, alert, obeys commands, Oriented to person, place, time, situation. Cardiovascular: Denies chest pain, Capillary refill < 3 seconds Patient's skin is warm and dry. Respiratory: Airway is patent Respiratory effort is even, unlabored, Respiratory pattern is regular, symmetrical, Denies shortness of breath. GI: No signs and/or symptoms were reported involving the gastrointestinal system. : Reports burning with urination, urinary frequency. EENT: No signs and/or symptoms were reported regarding the EENT system. Derm: Skin is intact, Skin is dry, Skin is normal, Skin temperature is warm. Musculoskeletal: Circulation, motion, and sensation intact. Range of motion: intact in all extremities. 23:25 Reassessment: Patient appears in no apparent distress at this time. Patient and/or jd3 family updated on plan of care and expected duration. Pain level reassessed. Patient is alert, oriented x 3, equal unlabored respirations, skin warm/dry/pink. Patient states feeling better. Vital Signs: 21:20 BP 156 / 85; Pulse 95; Resp 18 S; Temp 98.9(O); Pulse Ox 94% on R/A; Weight 76.2 kg [facility] (R); Height 5 ft. 2 in. (157.48 cm) (R); Pain 5/10; 21:20 Body Mass Index 30.73 (76.20 kg, 157.48 cm) [facility] ED Course: 21:04 Patient arrived in ED. es 21:14 Triage completed. bb 21:19 Arm band placed on right wrist. Patient placed in waiting room, Patient notified of bb wait time. 22:22 Fernando Mercado, RN is Primary Nurse. jd3 22:25 Patient has correct armband on for positive identification. Bed in low position. Call jd3 light in reach. Side rails up X 1. Adult w/ patient. 22:28 Naren Barker MD is Attending Physician. [facility] 23:19 Urine Culture Sent. jd3 23:25 No provider procedures requiring assistance completed. Patient did not have IV access jd3 during this emergency room visit. Administered Medications: 23:21 Drug: Bactrim 160 mg-800 mg (DS) 160 mg Route: PO; jd3 23:26 Follow up: Response: Medication administered at discharge. jd3 23:21 Drug: Macrobid 100 mg Route: PO; jd3 23:26 Follow up: Response: Medication administered at discharge. jd3 23:22 Drug: Pyridium 200 mg Route: PO; jd3 23:26 Follow up: Response: Medication administered at discharge. jd3 Outcome: 23:15 Discharge ordered by . [facility] 23:25 Discharged to home ambulatory, with family. jd3 23:25 Condition: stable 23:25 Discharge instructions given to patient, family, Instructed on discharge instructions, follow up and referral plans. medication usage, Demonstrated understanding of instructions, follow-up care, medications, Prescriptions given X 3. 23:27 Patient left the ED. jd3 Addendum: 02/20/2018 08:07 Addendum: Culture Results: Positive urine culture. No further action required. Bacteria i w sensitive to prescribed antibiotic. Signatures: Naren Barker MD MD cha Salyer, Edna es Ballard, Brenda, RN RN Daysi Segovia RN RN iw Davies, Jonathon, CLIVE RN jd3 Corrections: (The following items were deleted from the chart) 02/17 23:28 21:19 BP 156 / 85; Pulse 95bpm; Resp 18bpm; Spontaneous; Pulse Ox 94% RA; Temp 98.9F jd3 Oral; 76.2 kg Reported; Height 5 ft. 2 in. Reported; BMI: 30.7; Pain 5/10; bb
--- NOTE | 2018-02-17 23:17 | EDPHYS ---
Physician Documentation [facility] Name: Karlee Sena Age: 72 yrs Sex: Female : 1945 Arrival Date: 02/17/2018 Time: 21:04 Bed 26 Private MD: ED Physician Naren Barker HPI: 02/17 23:10 This 72 yrs old Female presents to ER via Ambulatory with complaints of tita Urinary Problem. 23:10 The patient presents with urinary symptoms, dysuria, frequency, hematuria, urgency. tita Onset: The symptoms/episode began/occurred 2 day(s) ago. Modifying factors: The symptoms are alleviated by nothing, the symptoms are aggravated by nothing. Associated signs and symptoms: The patient has no apparent associated signs or symptoms. Severity of symptoms: At their worst the symptoms were mild, in the emergency department the symptoms are unchanged. The patient is not sexually active. The patient has experienced similar episodes in the past, several times. Historical: - Allergies: 21:19 PENICILLINS; bb 21:19 Levaquin; bb - Home Meds: 21:19 losartan-hydrochlorothiazide 100-12.5 mg oral tab 1 tab once daily [Active]; Verelan bb 300 mg Oral 1 cap once daily [Active]; Singulair 10 mg Oral tab 1 tab once daily [Active]; citalopram 20 mg tab 1 tab once daily [Active]; alendronate 70 mg oral tab 1 tab once wkly [Active]; Advair Diskus 500-50 mcg/dose Inhl dsdv 1 puff 2 times per day [Active]; oxybutynin chloride 5 mg Oral tab 1 tab 2 times per day [Active]; aspirin 81 mg Oral chew 1 tab once daily [Active]; Albuterol Nebulizer twice a day [Active]; Ventolin Rotahaler/Rotacaps Inhl as needed [Active]; calcium [Active]; solu-medrol dose jakub [Active]; - PMHx: 21:19 Asthma; Hypertension; CLL; bb - PSHx: 21:19 back surgery x 2; neck surgery; pins in right leg; Tonsillectomy; bb - Immunization history:: Adult Immunizations up to date, Flu vaccine is up to date. Pneumococcal vaccine is up to date. - Social history:: Smoking status: Patient/guardian denies using tobacco. - Ebola Screening: : No symptoms or risks identified at this time. - Family history:: not pertinent. ROS: 23:10 Constitutional: Negative for fever, chills, and weight loss, Eyes: Negative for injury, tita pain, redness, and discharge, ENT: Negative for injury, pain, and discharge, Neck: Negative for injury, pain, and swelling, Cardiovascular: Negative for chest pain, palpitations, and edema, Respiratory: Negative for shortness of breath, cough, wheezing, and pleuritic chest pain, Back: Negative for injury and pain, MS/Extremity: Negative for injury and deformity, Skin: Negative for injury, rash, and discoloration, Neuro: Negative for headache, weakness, numbness, tingling, and seizure, Psych: Negative for depression, anxiety, suicide ideation, homicidal ideation, and hallucinations, Allergy/Immunology: Negative for hives, rash, and allergies, Endocrine: Negative for neck swelling, polydipsia, polyuria, polyphagia, and marked weight changes, Hematologic/Lymphatic: Negative for swollen nodes, abnormal bleeding, and unusual bruising. 23:10 Abdomen/GI: Positive for abdominal pain, of the suprapubic area. Exam: 23:10 Constitutional: This is a well developed, well nourished patient who is awake, alert, tita and in no acute distress. Head/Face: Normocephalic, atraumatic. Eyes: Pupils equal round and reactive to light, extra-ocular motions intact. Lids and lashes normal. Conjunctiva and sclera are non-icteric and not injected. Cornea within normal limits. Periorbital areas with no swelling, redness, or edema. ENT: Nares patent. No nasal discharge, no septal abnormalities noted. Tympanic membranes are normal and external auditory canals are clear. Oropharynx with no redness, swelling, or masses, exudates, or evidence of obstruction, uvula midline. Mucous membranes moist. Neck: Trachea midline, no thyromegaly or masses palpated, and no cervical lymphadenopathy. Supple, full range of motion without nuchal rigidity, or vertebral point tenderness. No Meningismus. Chest/axilla: Normal chest wall appearance and motion. Nontender with no deformity. No lesions are appreciated. Cardiovascular: Regular rate and rhythm with a normal S1 and S2. No gallops, murmurs, or rubs. Normal PMI, no JVD. No pulse deficits. Respiratory: Lungs have equal breath sounds bilaterally, clear to auscultation and percussion. No rales, rhonchi or wheezes noted. No increased work of breathing, no retractions or nasal flaring. Back: No spinal tenderness. No costovertebral tenderness. Full range of motion. Female : Normal external genitalia. Skin: Warm, dry with normal turgor. Normal color with no rashes, no lesions, and no evidence of cellulitis. MS/ Extremity: Pulses equal, no cyanosis. Neurovascular intact. Full, normal range of motion. Neuro: Awake and alert, GCS 15, oriented to person, place, time, and situation. Cranial nerves II-XII grossly intact. Motor strength 5/5 in all extremities. Sensory grossly intact. Cerebellar exam normal. Normal gait. Psych: Awake, alert, with orientation to person, place and time. Behavior, mood, and affect are within normal limits. 23:10 Abdomen/GI: Inspection: abdomen appears normal, Bowel sounds: normal, Palpation: mild abdominal tenderness, in the suprapubic area, Liver: no appreciated palpable abnormalities, Hernia: not appreciated. Vital Signs: 21:20 BP 156 / 85; Pulse 95; Resp 18 S; Temp 98.9(O); Pulse Ox 94% on R/A; Weight 76.2 kg j (R); Height 5 ft. 2 in. (157.48 cm) (R); Pain 5/10; 21:20 Body Mass Index 30.73 (76.20 kg, 157.48 cm) [facility] MDM: 22:28 Patient medically screened. [facility] 23:13 Data reviewed: vital signs, nurses notes, lab test result(s), urinalysis, bacteruria, tita hematuria, pyuria. 02/17 22:28 Order name: Urine Dipstick--Ancillary (enter results); Complete Time: 23:18 ar5 02/17 23:09 Order name: Urine Culture [facility] Administered Medications: 23:21 Drug: Bactrim 160 mg-800 mg (DS) 160 mg Route: PO; jd3 23:26 Follow up: Response: Medication administered at discharge. [facility] 23:21 Drug: Macrobid 100 mg Route: PO; [facility] 23:26 Follow up: Response: Medication administered at discharge. [facility] 23:22 Drug: Pyridium 200 mg Route: PO; jd3 23:26 Follow up: Response: Medication administered at discharge. jd3 Disposition: 02/17/18 23:15 Discharged to Home. Impression: Dysuria, Cystitis, unspecified. - Condition is Stable. - Discharge Instructions: Dysuria, Urinary Tract Infection, Adult, Urinary Tract Infection, Adult, [id number]. - Prescriptions for Pyridium 200 mg Oral Tablet - take 1 tablet by ORAL route every 8 hours for 2 days; 6 tablet. Bactrim DS 800- 160 mg Oral Tablet - take 1 tablet by ORAL route every 12 hours for 3 days; 6 tablet. Macrobid 100 mg Oral Capsule - take 1 capsule by ORAL route every 12 hours for 7 days; 14 capsule. - Medication Reconciliation Form, Thank You Letter, Antibiotic Education, Prescription Opioid Use form. - Follow up: Private Physician; When: 2 - 3 days; Reason: Recheck today's complaints, Continuance of care, Re-evaluation by your physician. - Problem is new. - Symptoms have improved. Signatures: Dispatcher [employer] EDDE Naren Barker MD MD cha Ballard, Brenda, RN RN Fernando Tan RN RN jd3 Corrections: (The following items were deleted from the chart) 23:27 23:15 02/17/2018 23:15 Discharged to Home. Impression: Dysuria; Cystitis, unspecified. jd3 Condition is Stable. Forms are Medication Reconciliation Form, Thank You Letter, Antibiotic Education, Prescription Opioid Use. Follow up: Private Physician; When: 2 - 3 days; Reason: Recheck today's complaints, Continuance of care, Re-evaluation by your physician. Problem is new. Symptoms have improved. tita
[2018-02-17] MEDS ORDERED: SMZ./TMP. 800/160 MG TABLET ONE (23:25)
[2018-02-17] MEDS ORDERED: PHENAZOPYRIDINE 100MG TAB PO ONE (23:25)
[2018-02-17] MEDS ORDERED: NITROFURAN MACRO 100 MG CAP PO ONE (23:26)
== END 2018-02-17 23:27 | disposition home or self-care (01) ==
LOC: ER 21:02
DX: N30.90 Cystitis, unspecified without hematuria (principal); I10 Essential (primary) hypertension; J45.909 Unspecified asthma, uncomplicated; C91.10 Chronic lymphocytic leukemia of B-cell type not having achieved remission; Z88.1 Allergy status to other antibiotic agents; Z88.0 Allergy status to penicillin
CPT/HCPCS: 81003; 87077; 87086; 87088; 87186; 99283

== ENCOUNTER 2018-07-15 15:31 | Inpatient (IN) | payer OTHER ==
--- OUTSIDE RECORDS SUMMARY | 2018-07-15 15:33 | XMS REPORT | Clinical Summary ---
:1945 Author Organization [facility] Address [address] [place] [address] Care Team Providers Name Role Phone Sharonda Salazar MD Primary Care Provider Allergies Not on File Medications Not on file Active Problems Not on file Encounters Date Type Specialty Care Team Description 02/27/2018 Transcribe Orders Radiology Lars Castro, Cough (Primary Dx) 02/03/2018 Lab Lab Lars Castro, Dyspnea, unspecified type (Primary Dx) ; Acute respiratory insufficiency after 07/14/2017 Social History Tobacco Use Types Packs/Day Years [...] 1994 COLON CANCER SCREENING 1994 SHINGLES VACCINES (#1) 1994 65+ PNEUMOCOCCAL VACCINE (1 of 2 - PCV13) 2009 INFLUENZA VACCINE 09/07/2018 10/18/2017, 11/07/2012 Procedures Procedure Name Priority Date/Time Associated Diagnosis Comments CT CHEST WO CONTRAST Routine 02/27/2018 2:12 Cough Results for this PM ASSOCIATE DIRECTOR QA procedure are in the results section. IMMUNCAP SCORE Routine 02/03/2018 3:00 Results for this PM ASSOCIATE DIRECTOR QA procedure are in the results section. MISCELLANEOUS REFERRAL Routine 02/03/2018 3:00 Dyspnea, unspecified Results for this TEST PM ASSOCIATE DIRECTOR QA type procedure are in Acute respiratory the results insufficiency section. EOSINOPHIL COUNT Routine 02/03/2018 3:00 Dyspnea, unspecified Results for this ABSOLUTE PM ASSOCIATE DIRECTOR QA type procedure are in Acute respiratory the results insufficiency section. IMMUNOGLOBULIN E Routine 02/03/2018 3:00 Dyspnea, unspecified Results for this PM ASSOCIATE DIRECTOR QA type procedure are in Acute respiratory the results insufficiency section. ANTI-NEUTROPHILIC Routine 02/03/2018 3:00 Dyspnea, unspecified Results for this CYTOPLASMIC ABS PANEL PM ASSOCIATE DIRECTOR QA type procedure are in Acute respiratory the results insufficiency section. ALLERGEN, REGION 10 Routine 02/03/2018 3:00 Dyspnea, unspecified Results for this RESPIRATORY KENNEY IGE PM ASSOCIATE DIRECTOR QA type procedure are in Acute respiratory the results insufficiency section. after 07/14/[address] Chest Wo Contrast (02/27/2018 2:12 PM ASSOCIATE DIRECTOR QA) Specimen Narrative Performed At EXAMINATION: CT CHEST WO CONTRAST [facility] CLINICAL HISTORY: R05 Cough, cough TECHNIQUE:Axial images of the chest were obtained without intravenous contrast. The lack of intravenous contrast reduces the sensitivity of the exam and evaluating vasculature. CT imaging was performed with iterative reconstruction technique and/or automated exposure control to reduce radiation dose. COMPARISON:No prior chest CT available for comparison. FINDINGS: CHEST: 1. Aorta: The thoracic aorta is nonaneurysmal. Ascending thoracic aorta measures up to 37 mm, normal in caliber. Atherosclerosis of the great vessels. 2. Heart: Pulmonary trunk normal in caliber. Heart size within normal limits. Coronary artery calcifications. Mitral annular calcifications. 3. Pericardial Fluid: No pericardial effusion. 4. Mediastinum: No significant adenopathy is seen in the base of the neck. No significant adenopathy is seen in the axilla. No significant mediastinal or hilar lymph nodes by size criteria. Calcified mediastinal lymph nodes consistent with a remote history of granulomatous disease. Thoracic esophagus is grossly unremarkable except for a tiny hiatal hernia. 5. Airways: Central airways are patent. Mild irregularity involving the airway john of the perihilar airway is without evidence of negrita bronchiectasis. Findings can be seen in the setting of underlying small airways disease. 6. Lungs: Hypoventilation of the lungs with volume loss in the lung bases. Scattered calcified granulomata. Linear atelectasis or scarring is present in the lingula, right middle lobe, and right lower lobe. No findings to suggest pneumonia. There is no suspicious pulmonary nodule seen. 7. Pleural Fluid: No pleural effusions. 8. Bones: Degenerative changes of the osseous structures. No suspicious lesions. 9. Upper Abdomen: Limited assessment of the upper abdomen in the absence of contrast demonstrates no visible free air. Limited assessment of the solid organs of the upper abdomen the absence of contrast demonstrates no definite focal abnormality. Atherosclerosis of the abdominal aorta. 10. Other Findings: None IMPRESSION: 1. No evidence of pneumonia. 2. Mild perihilar airway wall irregularities without evidence of negrita bronchiectasis. Findings may be secondary to underlying small airways disease. 3. 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 4. Additional findings and details as above. [facility]-[id number] Procedure Note [facility], Radiology Results Incoming - 02/27/2018 2:25 PM ASSOCIATE DIRECTOR QA EXAMINATION: CT CHEST WO CONTRAST CLINICAL HISTORY: R05 Cough, cough TECHNIQUE: Axial images of the chest were obtained without intravenous contrast. The lack of intravenous contrast reduces the sensitivity of the exam and evaluating vasculature. CT imaging was performed with iterative reconstruction technique and/or automated exposure control to reduce radiation dose. COMPARISON: No prior chest CT available for comparison. FINDINGS: CHEST: 1. Aorta: The thoracic aorta is nonaneurysmal. Ascending thoracic aorta measures up to 37 mm, normal in caliber. Atherosclerosis of the great vessels. 2. Heart: Pulmonary trunk normal in caliber. Heart size within normal limits. Coronary artery calcifications. Mitral annular calcifications. 3. Pericardial Fluid: No pericardial effusion. 4. Mediastinum: No significant adenopathy is seen in the base of the neck. No significant adenopathy is seen in the axilla. No significant mediastinal or hilar lymph nodes by size criteria. Calcified mediastinal lymph nodes consistent with a remote history of granulomatous disease. Thoracic esophagus is grossly unremarkable except for a tiny hiatal hernia. 5. Airways: Central airways are patent. Mild irregularity involving the airway john of the perihilar airway is without evidence of negrita bronchiectasis. Findings can be seen in the setting of underlying small airways disease. 6. Lungs: Hypoventilation of the lungs with volume loss in the lung bases. Scattered calcified granulomata. Linear atelectasis or scarring is present in the lingula, right middle lobe, and right lower lobe. No findings to suggest pneumonia. There is no suspicious pulmonary nodule seen. 7. Pleural Fluid: No pleural effusions. 8. Bones: Degenerative changes of the osseous structures. No suspicious lesions. 9. Upper Abdomen: Limited assessment of the upper abdomen in the absence of contrast demonstrates no visible free air. Limited assessment of the solid organs of the upper abdomen the absence of contrast demonstrates no definite focal abnormality. Atherosclerosis of the abdominal aorta. 10. Other Findings: None IMPRESSION: 1. No evidence of pneumonia. 2. Mild perihilar airway wall irregularities without evidence of negrita bronchiectasis. Findings may be secondary to underlying small airways disease. 3. 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 4. Additional findings and details as above. [facility]-[id number] Performing Organization Address City/State/Zipcode Phone Number [facility] [phone] [place] [address] Allergen, region 10 respiratory kenney IgE (02/03/2018 3:00 PM ASSOCIATE DIRECTOR QA) [facility] Signature IgE 11 <=214 [facility] Comment: REFERENCE INTERVAL: Immunoglobulin E, Serum Access complete set of age- and/or gender-specific reference intervals for this test in the [facility] Test Directory (Tech21). Allergen, mites, D. <0.10 <=0.34 [facility] farinae IgE Allergen, mites, D. <0.10 <=0.34 [facility] pteronyssinus IgE Allergen, animal, 0.29 <=0.34 [facility] cat dander IgE Allergen, animal, 0.94 (H) <=0.34 [facility] dog dander IgE Allergen, grass, 0.11 <=0.34 [facility] B[place] grass IgE Allergen, grass, <0.10 <=0.34 [facility] Alfred grass IgE Allergen, insect, <0.10 <=0.34 [facility] cockroach, Bengali IgE Allergen, <0.10 <=0.34 [facility] fungi/mold, A. alternata IgE Allergen, <0.10 <=0.34 [facility] fungi/mold, A. fumigatus IgE Allergen, <0.10 <=0.34 [facility] fungi/mold, Hormodendrum IgE Allergen, <0.10 <=0.34 [facility] fundi/mold, P. notatum IgE Allergen, tree, box <0.10 <=0.34 [facility] elder/maple tree IgE Allergen, tree, <0.10 <=0.34 [facility] birch tree IgE Allergen, tree, <0.10 <=0.34 [facility] cottonwood tree IgE Allergen, tree, elm <0.10 <=0.34 [facility] tree IgE Allergen, tree, <0.10 <=0.34 [facility] mountain cedar tree IgE Allergen, tree, <0.10 <=0.34 [facility] white mulberry tree IgE Allergen, tree, oak 0.13 <=0.34 [facility] tree IgE Allergen, tree, <0.10 <=0.34 [facility] pecan tree IgE Allergen, tree, 0.13 <=0.34 [facility] white josh tree IgE Allergen, weed, <0.10 <=0.34 [facility] pigweed IgE Allergen, weed, <0.10 <=0.34 [facility] common/short ragweed IgE Allergen, weed, <0.10 <=0.34 [facility] nettle IgE Rough marshelder <0.10 <=0.34 [facility] Allergen, weed, <0.10 <=0.34 [facility] sheep sorrel IgE Allergen, animal, <0.10 <=0.34 [facility] mouse epithelium IgE Allergen, <0.10 <=0.34 [facility] fungi/mold, M. racemosus IgE Allergen, food, <0.10 <=0.34 [facility] peanut IgE Allergen, food, milk <0.10 <=0.34 [facility] (cow) IgE Comment: Performed by [facility], [address] [place], [place] [id number] [email or web address], Mihir Pleitez MD - Lab. Director Specimen Serum Performing Organization Address City/State/Zipcode Phone Number [facility] [address] [place] [address] [facility] [address] [place] [address] Miscellaneous referral test (02/03/2018 3:00 PM ASSOCIATE DIRECTOR QA) [facility] test name Cystic Fibrosis 165 [facility] Pathogenic [facility] test result SEE NOTE [facility] Comment: Cystic Fibrosis (CFTR) 165 Pathogenic Variants [facility] test code 5240305 Cystic Fibrosis, Allele 1 Negative - - [...] See Note According to information provided to [facility], this patient is a 72 year old female with bronchiectasis. No pathogenic cystic fibrosis (CF) variants, including the mild 5T variant, were identified by the CF 165 variant panel. Individuals with CFTR-related disorders may have mild variants that are not detected using a CF panel designed to detect variants in classically affected individuals. Consideration should be given to CFTR full gene sequencing ([facility] test code 4231945), which detects 97% of CFTR variants, if [...] or bronchiectasis. INCIDENCE: 1 in 2,300 [employer], 1 in 2,500 Caucasians, 1 in 13,500 [...] for the 23 recommended ACMG variants. c.1A>G, p.Eak0Vza; c.54-6160_273+54334kkr, Exons 2-3del; c.115C>T, p.Gln39X; c.178G>T, p.Glu60X; c.200C>T, p.Fhp04Irt; c.223C>T, p.Arg75X; c.254G>A (Legacy G85E), p.Kes61Cqw; c.262_263delTT, p.Hem27RxfytA47 (aka p.Hsk21pm); c.273+1G>A, Intronic; c.273+3A>C, Intronic; c.274-1G>A, Intronic; c.274G>A, p.Vjd77Hwd; c.274G>T, p.Glu92X; c.292C>T, p.Gln98X; c.313delA, p.Xiz037WijykQ2 (aka p.Tdj500qu); c.325_327delTATinsG, p.Ewq222QqdjhT4 (aka p.Jnv889sn); c.328G>C, p.Nyu006Dqi; c.349C>T, p.Wjo561Bgx; c.350G>A (Legacy R117H), p.Uty232Ssg; c.366T>A, p.Fym337D; c.442delA, p.Yui486JvcgeB8 (aka p.Alt007ez); c.489+1G>T (Legacy 621+1G>T), Intronic; c.531delT, p.Kyn315EcoylM62 (aka p.Rzo683ch); c.532G>A, p.Cju898Gdk; c.579+1G>T (Legacy 711+1G>T), Intronic; c.579+5G>A, Intronic; c.579+3A>G, Intronic; c.580-1G>T, Intronic; c.595C>T, p.Okq979Dac; c.613C>T, p.Guo540Ogl; c.617T>G, p.Bez297Jkw; c.658C>T, p.Bpp688K; c.680T>G, p.Aaw408Myd; c.720_741delAGGGAGAATGATGATGAAGTAC, p.Hmx355TpvtaM71 (aka p.Pdq595dk); c.803delA, p.Hvi756YwxkiQ68 (aka p.Kmb309al); c.805_806delAT, p.Bru630TvdkvQ9 (aka p.Pky129ix); c.933_935delCTT, p.Ghg912ohw; c.948delT, p.Ajx522MsqauU24 (aka p.Ybh866zy); c.988G>T, p.Mrc350X; c.1000C>T (Legacy R334W), p.Mho143Abs; c.1007T>A, p.Ktd930Obv; c.1021T>C, p.Lyr431Byk; c.1022_1023insTC, p.Rgu396JgljnO84 (aka p.Sjd005zw); c.1040G>A, p.Nxx696Arc; c.1040G>C (Legacy R347P), p.Rnn766Njv; c.1055G>A, p.Gcq402Axk; c.1081delT, p.Efw181MwphuD6 (aka p.Pcw956sb); c.1116+1G>A, Intronic; c.1127_1128insA, p.Zbb478LxplzQ3 (aka p.Bvq388dm); c.1153_1154insAT, p.Rer679QfwxoM0 (aka p.Nsh558ox); c.1202G>A, p.Rfd052C; c.1203G>A, p.Wtl052D; c.1209+1G>A, Intronic; c.1329_1330insAGAT, p.Iul299LtyorN4 (aka p.Amb955xo); c.1340delA, p.Fqv445WgdoaQ5 (aka p.Sff553qn); c.1364C>A (Legacy A455E), p.Dog082Zas; c.1393-1G>A, Intronic; c.1397C>A, p.Zpo932O; c.1397C>G, p.Wtx159K; c.1400T>C, p.Fdm929Kds; c.1418delG, p.Izt842ZowltQ67 (aka p.Oha512iq); c.1438G>T, p.Wks573Qiz; c.1466C>A, p.Gaz759T; c.1475C>T, p.Kvl296Jaq; c.1477C>T, p.Knj535Q; c.1519_1521delATC (Legacy N011bnp), p.Dsm588xhg; c.1521_1523delCTT (Legacy B671qoa), p.Baa195kjw; c.1545_1546delTA, p.Hwp947Z; c.1558G>T, p.Nuy048Flu; c.1572C>A, p.Rav305H; c.1573C>T, p.Qla340I; c.1585-1G>A (Legacy 1717-1G>A), Intronic; c.1585-8G>A, Intronic; c.1624G>T (Legacy G542X), p.Msx223O; c.1645A>C, p.Rhb748Fmw; c.1646G>A, p.Wdo426Yti; c.1647T>G, p.Ykr953Bxp; c.1651G>A, p.Qla728Cqq; c.1652G>A (Legacy G551D), p.Vgq242Sax; c.1654C>T, p.Hlo959C; c.1657C>T (Legacy R553X), p.Drk950G; c.1675G>A, p.Ziu563Jsf; c.1679G>A, p.Eac516Lmq; c.1679G>C (Legacy R560T), p.Mqp651Pji; c.1679+1.6kbA>G, Intronic; c.1680-1G>A, Intronic; c.1703delT, p.Bqt258KayzeY2 (aka p.Yja003qo); c.1705T>G, p.Vak330Vhm; c.1721C>A, p.Dtz998Qse; c.1753G>T, p.Lgk249K; c.1766+1G>A (Legacy 1898+1G>A), Intronic; c.1766+3A>G, Intronic; c.1792_1798delAAAACTA, p.Slh412SlreuK13 (aka p.Fzy727ds); c.1911delG, p.Tio904KehazD01 (aka p.Fdy025zs); c.1923_1931del9insA, p.Edi817JodroA7 (aka p.Yfu297xc); c.1972_1984del13insAGAAA, p.Kow787FughrE3 (aka p.Eui048wx); c.1975delA, p.Awk471AfvfyV4 (aka p.Afh705cr); c.2011delT, p.Osw232A; c.205_2052del, p.Qcl453DsekdN7; c.2051_2delinsG (aka c.2051_2delinsG), p.Dgs866VsqclL17; c.2052delA (Legacy 2184delA), p.Cpi733IgaczF23; c.2125C>T, p.Eko797O; c.2128A>T, p.Ioz277I; c.2175_2176insA, p.Uqv439WsllrN6 (aka p.Igp107ao); c.2195T>G, p.Rwv172K; c.2215delG, p.Ugm821NcjjtN50 (aka p.Ppv089hv); c.2290C>T, p.Erb925Bei; c.2453delT, p.Yyn918SbhptG7 (aka p.Kea364xa); c.2464G>T, p.Ija071R; c.2490+1G>A, Intronic; c.2491G>T, p.Wgm543V; c.2537G>A, p.Sgj023G; c.2538G>A, p.Utd287S; c.2551C>T, p.Tia869M; c.2583delT, p.Lvi342KatypA8 (aka p.Fnw292sh); c.2657+5G>A (Legacy 2789+5G>A), Intronic; c.2668C>T, p.Ktx992F; c.2737_2738insG, p.Sad145R; c.2780T>C, p.Uii150Fzv; c.2810_2811insT, p.Bfe357UhodvY86 (aka p.Kuz220gc); c.2834C>T, p.Ucu529Sbq; c.2875delG, p.Vry465TmnjrZ2 (aka p.Hce903ml); c.2908G>C, p.Rgc427Xru; c.2988+1G>A (Legacy 3120+1G>A), Intronic; c.2988G>A, Intronic; c.2989-1G>A, Intronic; c.3039delC, p.Ynw3311CqkrjZ6 (aka p.Vst0383ih); c.3067_3072delATAGTG, p.Psj6038_Edr3490wgi (aka E7655_M1603hvz); c.3140-26A>G, Intronic; c.3194T>C, p.Hwl6749Tqj; c.3196C>T, p.Kgp0619Ujf; c.3197G>A, p.Ych1215Uqn; c.3230T>C, p.Jtf6365Qvj; c.3266G>A, p.Pkv4475O; c.3276C>A, p.Wqu5561F; c.3276C>G, p.Rfo0897N; c.3302T>A, p.Dus6530Psi; c.3310G>T, p.Rat8704G; c.3472C>T, p.Lkn1664Y; c.3484C>T (Legacy K7862Y), p.Dih9854X; c.3528delC (Legacy 3659delC), p.Fou5684CfbtoA62 (aka p.Dzk2868ry); c.3536_3539del, p.Fjg0179NmzkqJ74 (aka p.Xhv4636se); c.3587C>G, p.Mml0349N; c.3611G>A, p.Vbh7206I; c.3612G>A, p.Tdn0177C; c.3659delC, p.Gcb3617VduacL8 (aka p.Oid6401im); c.3691delT, p.Jjf7278YkghqQ7 (aka p.Vta5577ce); c.3712C>T, p.Zmn5286P; c.3718-5887C>T (Legacy 3849+10kbC>T), Intronic; c.3731G>A, p.Ujk5598Jdi; c.3744delA, p.Oka4865OlbhuR6 (aka p.Ofz5238to); c.3752G>A, p.Esf1241Mkp; c.3763T>C, p.Cdz2825Ohi; c.3764C>A, p.Hxe6740B; c.3773_3774insT, p.Ewc6168WvusiR9 (aka p.Ncb5657dj); c.3846G>A (Legacy Z7100G), p.Exg6065C; c.3873+1G>A, Intronic; c.3909C>G (Legacy H1768G), p.Wtx2628Qsu; c.3937C>T, p.Zck1819I; c.3964-78_4242+577del, Exons 22-23del; c.4028delG, p.Iyw6230QsvhbQ9 (aka p.Ukg7673hu); c.4046G>A, p.Bcx5946Fqx; c.4077_4080delTGTTinsAA, p.Ajo2796msN7 (aka p.Joa9793rz); c.4111G>T, p.Phv7559O; c.4251delA, p.Snq5734YwhubO49 (aka p.Svy7258zl). The IVS-8 variant, c.1210-12[5], will be reported only when R117H is detected or in patients who are reported to be symptomatic. CLINICAL SENSITIVITY: [employer] 96 percent; 92 percent; 80 percent; 78 percent; Citizen Of [place] 55 percent. METHODOLOGY: Polymerase chain reaction (PCR) and fluorescence monitoring. Analytical Sensitivity & Specificity: 99 percent. LIMITATIONS: Diagnostic errors can occur due to rare sequence variations. Only the 165 pathogenic CFTR variants and 5T variant (listed above) will be interrogated. See Compliance Statement C: [email or web address] Test performed by: [facility] [address] [place], [id number] Specimen Performing Organization Address City/State/Zipcode Phone Number [facility] [address] [place] [address] [facility] [address] [place] [address] Immuncap score (02/03/2018 3:00 PM ASSOCIATE DIRECTOR QA) [facility] Signature Immunocap score See Note [facility] Comment: REFERENCE INTERVAL: Allergen, Interpretation [...] clinical allergy or even anaphylaxis. Performed by [facility], [address] [place] [id number] [email or web address], Mihir Pleitez MD - Lab. Director Specimen Serum Performing Organization Address [facility] Phone Number [facility] [address] [place] [phone] [facility] [address] [place] [address] Eosinophil count absolute (02/03/2018 3:00 PM ASSOCIATE DIRECTOR QA) Pathologist [facility] Eosinophils, absolute 0.38 0.00 - 0.55 K/uL [facility] Specimen Blood Performing Organization Address [facility] Phone Number [facility] DEPARTMENT OF PATHOLOGY AND [address] [place] [phone] Anti-neutrophilic cytoplasmic Abs panel (02/03/2018 3:00 PM ASSOCIATE DIRECTOR QA) Pathologist [facility] ANCA screen Negative Negative [facility] Specimen Blood Performing Organization Address City/[facility] Phone Number [facility] DEPARTMENT OF PATHOLOGY AND [address] [place] [phone] Immunoglobulin E (02/03/2018 3:00 PM ASSOCIATE DIRECTOR QA) [facility] IgE 10.6 0.0 - 100.0 IU/mL [facility] Specimen Serum Performing Organization Address [facility] Phone Number [facility] DEPARTMENT OF PATHOLOGY AND [address] [place] [address] [place] [phone] after 07/14/2017 (Home) [place] [address] (Work) Advance Directives Patient has advance care planning documents on file. For more information, please contact:[address] [address]
--- OUTSIDE RECORDS SUMMARY | 2018-07-15 15:34 | XMS REPORT | Continuity of Care Document ---
:1945 Author Organization Interface Problems Problem Status Onset Classification Date Comments Source Date Reported M81.0 - Active 12/25/19 [facility] AGE-RELATED 15 Keiry OSTEOPOROSIS W/O C Arthritis Resolved Problem 06/23/2018 [facility] Asthma Resolved Problem 06/23/2018 [facility] Overactive Active Problem 06/23/2018 Medical bladder Group Bronchiectasis Active Problem 06/23/2018 [facility] CLL (<span Active Problem 06/23/2018 [facility] ID="[id number]" KeiryM Confirmed</span> [facility] ) Group Hypertension Resolved Problem 06/23/2018 [facility] Leukemia Resolved Problem 06/23/2018 [facility] Obesity Active Problem 06/23/2018 [facility] 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 [facility] Osteoporosis Active Problem 06/23/2018 [facility] Postmenopausal Active Problem 06/23/2018 Medical status Group Prediabetes Active Problem 06/23/2018 Medical Group Immunization due Active Problem 04/15/2018 Medical Group 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 [facility] Osteopenia Active Problem 08/06/2017 [facility] Screening for Active Problem 01/07/2017 [facility] breast cancer [facility] Depression Active Problem 01/07/2017 [facility] Medicare annual Active Problem 01/07/2017 Medical wellness visit, Group subsequent Medications Medication Details Route Status Patient Ordering Order Source Instructions Provider Date 24 HR Verapamil 300 mg=1 Active hydrochloride 300 MG cap, PO, 2019 Medical Extended Release Bedtime, # Group Capsule [Verelan] 90 cap, 2 Refill(s), Pharmacy: [facility] [id number], instead of last Rx (this one is updated with 2 refills) Hydrochlorothiazide 1 tab, PO, Active 12.5 MG / Losartan Daily, # 90 2019 Medical Potassium 100 MG Oral tab, 2 Group Tablet Refill(s), Pharmacy: [facility] [id number], instead of last Rx (this one is updated with 2 refills) 24 HR Verapamil 300 mg=1 Inactive hydrochloride 300 MG cap, PO, 2019 Medical Extended Release Bedtime, # Group Capsule [Verelan] 90 cap, 1 Refill(s), [facility] [address] Hydrochlorothiazide 1 tab, PO, Inactive 12.5 MG / Losartan Daily, # 90 2019 Medical Potassium 100 MG Oral tab, 1 Group Tablet Refill(s), Pharmacy: [facility] [address] Breo Ellipta 100 1 puff, Active mcg-25 mcg inhalation INHALATION, 2019 Medical powder Daily, 0 Group Refill(s) levocetirizine 5 mg 5 mg=1 tab, Active oral tablet PO, QPM, # 2019 Medical 30 tab, 1 Group Refill(s) citalopram 20 mg oral 20 mg=1 No Longer tablet tab, PO, Active 2018 Medical Daily, # 90 Group tab, 1 Refill(s), [facility] [address] Hydrochlorothiazide 1 tab, PO, No Longer 12.5 MG / Losartan Daily, # 90 Active 2018 Medical Potassium 100 MG Oral tab, 1 Group Tablet Refill(s), [facility] [address] 24 HR Verapamil 300 mg=1 No Longer hydrochloride 300 MG cap, PO, Active 2018 Medical Extended Release Bedtime, # Group Capsule [Verelan] 90 cap, 1 Refill(s), [facility] [address] 24 HR Verapamil 300 mg=1 No Longer hydrochloride 300 MG cap, PO, Active 2018 Medical Extended Release Bedtime, # Group Capsule [Verelan] 30 cap, 0 Refill(s), [facility] [address] Raloxifene 60 mg=1 Active Hydrochloride 60 MG tab, PO, 2018 Medical Oral Tablet [Evista] Daily, # 90 Group tab, 3 Refill(s), Pharmacy: [facility] [address] 24 HR Verapamil 300 mg=1 Active hydrochloride 300 MG cap, PO, 2018 Medical Extended Release Bedtime, # Group Capsule [Verelan] 90 caplet, 1 Refill(s), Pharmacy: [facility] [address] Hydrochlorothiazide 1 tab, PO, Active 12.5 MG / valsartan Daily, # 90 2018 Medical 320 MG Oral Tablet tab, 1 Group [Diovan HCT 320/12.5] Refill(s), Pharmacy: [facility] [address] citalopram 20 mg oral 20 mg=1 Active tablet tab, PO, 2016 Medical Daily, # 90 Group tab, 2 Refill(s), [facility] [address] Allergies, Adverse Reactions, Alerts Substance Category Reaction Severity Reaction Status Date Comments Source type Reported penicillins Assertion Drug Active allergy Medical Group Levaquin Assertion Drug Active allergy Medical Group Immunizations Immunization Date Given Site Status Last Comments Source Updated pneumococcal 01/09/2018 Right completed [facility] 13-valent Deltoid Comment: no Group vaccine<sup>1</sagastume reaction p> influenza virus 11/16/2016 completed [facility] vaccine, Comment: Group inactivated<sup>2 [01/04/2017] </sup> at [facility] influenza virus 11/16/2016 completed [facility] vaccine, Comment: Group inactivated<sup>1 [01/04/2017] </sup> at [facility] Results Order Results Value Reference Date Interpretation Comments Source Name Range Breast Breast 01/16 - [facility] Mammo Mammo /2017 - [place] Scrn SHITAL Scrn SHITAL w aurelio w aurelio incl CAD incl CAD Read by: Nivia Mazariegos MD, MA, MA Dictated Date/time: 01/16/18 13:29 BILATERAL DIGITAL [...] is recommended.(01/17/2019) This exam was interpreted at [id number] for WILBER Jimenez 15. Professional services are provided by the [facility]. Nivia garibay/penrad:01/16/2018 13:29:22 Engraver Picture(s): Carolina Hinojosa letter sent: BI-RADS 1/2 Mammogram BI-RADS: 2 Benign Bone Bone 01/16 - [facility] Density Density /2017 - [place] DXA Dual DXA Dual Energy MA Energy [...] for fracture. This exam was interpreted at [id number] for Keiry, WILBER 15. Nivia garibay/silvestre:01/16/2018 13:25:08 Engraver Picture(s): Tia Gordon [facility] Shoulder Shoulder Study: Left shoulder, 3 views 12/15 - [facility] series DX series DX /2016 - [place] Clinical Indication: - LEFT SHOULDER PAIN Read [...] shoulder. 2. Moderate AC joint osteoarthrosis. SL: [id number] Bone Bone - Bone Density DXA Dual Energy MA 02/11 - [facility] Density Density /2017 - [place] DXA Dual DXA Dual BONE DENSITY EVALUATION: [...] T-score is -1.60. This matches the [facility] r[facility] Health Organization's criteria for osteopenia and places the patient at a medium risk for fracture. IMPRESSION: OSTEOPENIA Patient is at medium risk for fracture. Professional services are provided by the [facility]. This exam was dictated and interpreted by [id number] for WILBER Jimenez. Alex Cerrato M.D., cm/silvestre:02/13/2016 10:58:55 Engraver Picture: Carolina Hinojosa Vital Signs Vital Sign Value Date Comments Source BMI Calculated 32.95 06/12/2018 Medical Group Weight 79.091 06/12/2018 Medical Group Height 154.94 cm 06/12/2018 Medical Group Temperature Oral (F) 98.7 F 06/12/2018 Medical Group Systolic (mm Hg) 138 06/12/2018 Medical Group Diastolic (mm Hg) 87 06/12/2018 Medical Group Heart Rate 88 06/12/2018 Medical Group Heart Rate 76 09/26/2017 Medical Group Temperature Oral (F) 98.1 F 09/26/2017 Medical Group Systolic (mm Hg) 137 09/26/2017 Medical Group Diastolic (mm Hg) 88 09/26/2017 Medical Group Height 157.48 cm 09/26/2017 Medical Group BMI Calculated 31.8 09/26/2017 Medical Group Weight 78.864 09/26/2017 Medical Group BMI Calculated 32.38 02/25/2017 Medical Group Weight [...] 01/04/2017 Medical Group Heart Rate 77 01/04/2017 Medical Group Temperature Oral (F) 97.5 F 01/04/2017 Medical Group Systolic (mm Hg) 119 01/04/2017 Medical Group Diastolic (mm Hg) 70 01/04/2017 Medical Group Encounters Location Location Encounter Encounter Reason Attending ADM DC Status Source Details Type Number For Provider Date Date Visit Outpatient [id number] HARLEY 12/22 Active [facility] MARIE Gordo [facility] Outpt Diag [id number] Harley 02/11 02/12 [facility] Outpatient Services Marie [facility] Outpatient [id number] HARLEY 03/01 Active [facility] [place] Outpatient [id number] HARLEY 09/01 Active [facility] [place] Outpatient [id number] AKUVI 12/15 [facility] [place] [facility] [id number] Akuvi 12/15 12/16 [facility] [place] [facility] [id number] HARLEY 01/04 [facility] [place] [facility] Out[facility] [id number] Harley 01/04 01/05 Primary Marie /2016 [facility] Outpatient [id number] HARLEY 02/25 [facility] Out[facility] [id number] Harley 02/25 02/26 Primary Marie /2017 [facility] Phone [id number] 08/02 08/04 Primary Message /2017 [facility] Phone [id number] 09/07 09/09 Primary Message /2017 [facility] Outpatient [id number] HARLEY 09/26 [facility] [place] [facility] Outpatient [id number] Harley 09/26 09/27 Primary Marie /2017 [facility] Outpatient [id number] HARLEY 01/09 [facility] [place] Outpatient [id number] Harley 06/12 [facility] Out[facility] [id number] Harley 06/12 06/13 [facility] [id number] 06/12 06/14 Primary Message /2018 [facility] Between [id number] 06/20 06/21 Primary Visit /2018 [facility] Outpatient [id number] Harley 01/16 [facility] [place] Procedures Procedure Code Date Perfomer Comments Source Date of last [id number] 12/14/2016 negative for Medical mammogram<sup>1</s malignancy, Group up> done at [facility] Mammogram<sup>2</s [id number] 12/14/2016 [facility] Medical up> normal Group Mammogram<sup>1</s [id number] 12/14/2016 [facility] Medical up> normal Group Glaucoma [id number] 10/25/2016 UTD, follows Medical screening<sup>3</s with optho in Group up> Dr.Leilin Braeden Glaucoma [id number] 10/25/2016 UTD, follows Medical screening<sup>2</s with optho in Group up> Dr.Leilin Braeden Colonoscopy [id number] 02/07/2015 Medical Group History of back [id number] [facility] surgery [place] Right leg [id number] [facility] [place] History of back [id number] Medical surgery Group Right leg [id number] Medical Group
--- OUTSIDE RECORDS SUMMARY | 2018-07-15 15:34 | XMS REPORT | Summary of Care ---
:1945 Author Organization [facility] Primary Care [facility] Address [address] [address], [address] [place] [address]- Encounter HQ Encntr_alias(FIN) [id number] Date(s): 06/12/18 - 06/13/18 [facility] [address] [facility] [address] [place] [address]- [phone] Vital Signs No data available for this section Problem List Condition Effective Dates Status Health Status Informant Arthritis(Confirmed) Resolved Asthma(Confirmed) Resolved Overactive bladder(Confirmed) Active Bronchiectasis(Confirmed) Active CLL (chronic lymphocytic Active leukemia)(Confirmed) Hypertension(Confirmed) Resolved Leukemia(Confirmed) Resolved Obesity(Confirmed) Active Osteopetrosis(Confirmed) Resolved Osteoporosis(Confirmed) Active Postmenopausal status(Confirmed) Active Prediabetes(Confirmed) Active Allergies, Adverse Reactions, Alerts Substance Reaction Severity Status penicillins Active Levaquin Active Medications No data available for this section Results No data available for this section Immunizations Given and Recorded Vaccine Date Status Refusal Reason pneumococcal 13-valent vaccine1 01/09/18 Given influenza virus vaccine, inactivated2 11/16/16 Recorded 1Result Comment: no [id number] Comment: [01/04/2017] at [facility] Procedures Procedure Date Related Diagnosis Body Site Status Date of last mammogram1 12/14/16 Completed Mammogram2 12/14/16 Completed Glaucoma screening3 10/25/16 Completed Colonoscopy 02/2015 Completed History of back surgery Completed Right leg Completed 1negative for malignancy, done at [address] [id number], follows with optho in Dr.Leilin Braeden Social History Social History Type Response Exercise Exercise duration: 30. Exercise frequency: 3-4 times/week. Exercise type: Walking. Employment/School Status: Retired.1 Alcohol Current, Frequency: 1-2 times per week. Smoking Status Former smoker; Exposure to Tobacco Smoke None; Cigarette Smoking Last 365 Days No; Reg Smoking Cessation Counseling No entered on: 06/12/18 1married Assessment and Plan No data available for this section
--- OUTSIDE RECORDS SUMMARY | 2018-07-15 15:34 | XMS REPORT | Summary of Care ---
:1945 Author Organization [facility] Address [address] [place] [address], [address] [place] [address]- Encounter HQ Candice_ramon(FIN) [id number] Date(s): 09/26/17 - 09/26/17 [facility] [address] [place] [address], [address] [address]- [phone] Discharge Disposition: Home or Self Care Attending Physician: Sharonda Salazar MD Vital Signs Most recent to oldest [Reference Range]: 1 Height 157.48 cm (09/26/17 1:48 PM) Temperature Oral [96.4-99.1 DegF] 98.1 DegF (09/26/17 1:48 PM) Blood Pressure [90-140/60-90 mmHg] 137/88 mmHg (09/26/17 1:48 PM) Peripheral Pulse Rate [60-100 bpm] 76 bpm (09/26/17 1:48 PM) Weight 78.864 kg (09/26/17 1:48 PM) Body Mass Index 31.8 m2 (09/26/17 1:48 PM) Problem List Condition Effective Dates Status Health Status Informant Arthritis(Confirmed) Resolved Asthma(Confirmed) Resolved Overactive bladder(Confirmed) Active Bronchiectasis(Confirmed) Active CLL (chronic lymphocytic Active leukemia)(Confirmed) Hypertension(Confirmed) Resolved Immunization due(Confirmed) Active Leukemia(Confirmed) Resolved Obesity(Confirmed) Active Osteopetrosis(Confirmed) Resolved Osteoporosis(Confirmed) Active Postmenopausal status(Confirmed) Active Prediabetes(Confirmed) Active Colon cancer screening(Confirmed) Active Allergies, Adverse Reactions, Alerts Substance Reaction Severity Status penicillins Active Levaquin Active Medications citalopram 20 mg oral tablet 20 mg=1 tab, PO, Daily, # 90 tab, 1 Refill(s), Pharmacy: [facility] [id number] Start Date: 09/28/17 Stop Date: 01/09/18 Status: Discontinuedhydrochlorothiazide-losartan 12.5 mg-100 mg oral tablet 1 tab, PO, Daily, # 90 tab, 1 Refill(s), [facility] [facility] [place] [address] Start Date: 09/26/17 Stop Date: 01/09/18 Status: DiscontinuedVerelan PM 300 mg/24 hours oral capsule, extended release 300 mg=1 cap, PO, Bedtime, # 90 cap, 1 Refill(s), Pharmacy: [facility] [address] Start Date: 09/26/17 Stop Date: 01/09/18 Status: Discontinued Results No data available for this section Immunizations Given and Recorded Vaccine Date Status Refusal Reason pneumococcal 13-valent vaccine1 01/09/18 Given influenza virus vaccine, inactivated2 11/16/16 Recorded 1Result Comment: no [id number] Comment: [01/04/2017] at [facility] Procedures Procedure Date Related Diagnosis Body Site Status Date of last mammogram1 12/14/16 Completed Mammogram2 12/14/16 Completed Glaucoma screening3 10/25/16 Completed Colonoscopy 02/2015 Completed History of back surgery Completed Right leg Completed 1negative for malignancy, done at [address], [id number], follows with optho in Dr.Leilin Braeden Social History Social History Type Response Exercise Exercise duration: 30. Exercise frequency: 3-4 times/week. Exercise type: Walking. Employment/School Status: Retired.1 Alcohol Current, Frequency: 1-2 times per week. Smoking Status Former smoker; Exposure to Tobacco Smoke None; Cigarette Smoking Last 365 Days No; Reg Smoking Cessation Counseling No entered on: 01/09/18 1married Assessment and Plan No data available for this section
--- OUTSIDE RECORDS SUMMARY | 2018-07-15 15:34 | XMS REPORT | Summary of Care ---
:1945 Author Organization [facility] Address [address] [place] [address], [address] [place] [address]- Encounter HQ Encntr_alias(FIN) [id number] Date(s): 09/07/17 - 09/08/17 [facility] [address] [place] [address], [address] [place] [address]- [phone] Vital Signs No data available for this [...] Severity Status penicillins Active Levaquin Active Medications Verelan PM 300 mg/24 hours oral capsule, extended release 300 mg=1 cap, PO, Bedtime, # 30 cap, 0 Refill(s), Pharmacy: [facility] [id number] Start Date: 09/08/17 Stop Date: 09/26/17 Status: Discontinued Results No data available for this section Immunizations Given and Recorded Vaccine Date Status Refusal Reason pneumococcal 13-valent vaccine1 01/09/18 Given influenza virus vaccine, inactivated2 11/16/16 Recorded 1Result Comment: no [id number] Comment: [01/04/2017] at [facility] Procedures Procedure Date Related Diagnosis Body Site Status Date of last mammogram1 12/14/16 Completed Mammogram2 12/14/16 Completed Glaucoma screening3 9/18/17 Completed Colonoscopy 02/2015 Completed History of back surgery Completed Right leg Completed 1negative for malignancy, done at [facility], [id number], follows with optho in [place], Social History Social History Type Response Exercise [...]
--- OUTSIDE RECORDS SUMMARY | 2018-07-15 15:34 | XMS REPORT | Summary of Care ---
:1945 Author Organization [facility] Primary Care [facility] Address [address] [place] [address], [address] [place] [address]- Encounter HQ Chacortar_ramon(FIN) [id number] Date(s): 06/12/18 - 06/12/18 [facility] [address] [facility] [address] [place] [address]- [phone] Discharge Disposition: Home or Self Care Attending Physician: Sharonda Salazar MD Vital Signs Most recent to oldest [Reference Range]: 1 Height 154.94 cm (06/12/18 12:49 PM) Temperature Oral [96.4-99.1 DegF] 98.7 DegF (06/12/18 12:49 PM) Blood Pressure [90-140/60-90 mmHg] 138/87 mmHg (06/12/18 12:49 PM) Peripheral Pulse Rate [60-100 bpm] 88 bpm (06/12/18 12:49 PM) Weight 79.091 kg (06/12/18 12:49 PM) Body Mass Index 32.95 m2 (06/12/18 12:49 PM) Problem List Condition Effective Dates Status Health Status Informant Arthritis(Confirmed) Resolved Asthma(Confirmed) Resolved Overactive bladder(Confirmed) Active Bronchiectasis(Confirmed) Active CLL (chronic lymphocytic Active leukemia)(Confirmed) Hypertension(Confirmed) Resolved Leukemia(Confirmed) Resolved Obesity(Confirmed) Active Osteopetrosis(Confirmed) Resolved Osteoporosis(Confirmed) Active Postmenopausal status(Confirmed) Active Prediabetes(Confirmed) Active Allergies, Adverse Reactions, Alerts Substance Reaction Severity Status penicillins Active Levaquin Active Medications Breo Ellipta 100 mcg-25 mcg inhalation powder 1 puff, INHALATION, Daily, 0 Refill(s) Start Date: 06/12/18 Status: Orderedhydrochlorothiazide-losartan 12.5 mg-100 mg oral tablet 1 tab, PO, Daily, # 90 tab, 2 Refill(s), Pharmacy: [facility] [id number], instead of last Rx (this one is updated with 2 refills) Start Date: 06/12/18 Status: Orderedhydrochlorothiazide-losartan 12.5 mg-100 mg oral tablet 1 tab, PO, Daily, # 90 tab, 1 Refill(s), Pharmacy: [facility] [address] Start Date: 06/12/18 Stop Date: 06/12/18 Status: Discontinuedlevocetirizine 5 mg oral tablet 5 mg=1 tab, PO, QPM, # 30 tab, 1 Refill(s) Start Date: 06/12/18 Stop Date: 07/12/18 Status: OrderedVerelan PM 300 mg/24 hours oral capsule, extended release 300 mg=1 cap, PO, Bedtime, # 90 cap, 2 Refill(s), Pharmacy: [facility] [address], instead of last Rx (this one is updated with 2 refills) Start Date: 06/12/18 Status: OrderedVerelan PM 300 mg/24 hours oral capsule, extended release 300 mg=1 cap, PO, Bedtime, # 90 cap, 1 Refill(s), Pharmacy: [facility] [id number] Start Date: 06/12/18 Stop Date: 06/12/18 Status: Discontinued Results No data available for this section Immunizations Given and Recorded Vaccine Date Status Refusal Reason pneumococcal 13-valent vaccine1 01/09/18 Given influenza virus vaccine, inactivated2 11/16/16 Recorded 1Result Comment: no [id number] Comment: [01/04/2017] at [facility] Procedures Procedure Date Related Diagnosis Body Site Status Date of last mammogram1 12/14/16 Completed Mammogram2 12/14/16 Completed Glaucoma screening3 10/25/16 Completed Colonoscopy 02/2015 Completed History of back surgery Completed Right leg Completed 1negative for malignancy, done at [place] [address], [id number], follows with optho in Dr.Leilin Braeden Social [...]
--- OUTSIDE RECORDS SUMMARY | 2018-07-15 15:35 | XMS REPORT | Summary of Care ---
:1945 Author Organization [facility] Primary Care [facility] Address [address] [facility], [address] [place] [address]- Encounter HQ Encntr_alias(FIN) [id number] Date(s): 06/20/18 - 06/21/18 [facility] [address] [facility] [address] [place] [address]- [phone] Vital Signs No data available for this [...] vaccine, inactivated2 11/16/16 Recorded 1Result Comment: no [id number] Comment: [01/04/2017] at [facility] Procedures Procedure Date Related Diagnosis Body Site Status Date of last mammogram1 12/14/16 Completed Mammogram2 12/14/16 Completed Glaucoma screening3 10/25/16 Completed Colonoscopy 02/2015 Completed History of back surgery Completed Right leg Completed 1negative for malignancy, done at [address], [id number], follows with optho in Dr.Leilin Braeden Social [...]
[2018-07-15 16:47] LABS: Absolute Lymphocytes (CBC) 10.5 K/uL (0.7-4.9); Absolute Monocytes 0.5 K/uL (0.1-1.3); Absolute Neutrophil 6.3 K/uL (1.8-8.0); Basophils % 0.2 % (0-1.3); Eosinophils % 0.7 % (0-4.4); Hematocrit 40.3 % (36.0-45.0); Lymphocytes % 60.2 % (15.3-44.8); MPV 7.1 fL (7.6-11.3); Monocytes % 2.8 % (3.3-12.3); RBC Red Blood Cell Count 4.31 M/uL (3.86-4.86)
[2018-07-15 17:01] LABS: Albumin 3.5 g/dL (3.4-5.0); Bilirubin Direct 0.1 mg/dL (0-0.2); Bilirubin Total 0.3 mg/dL (0.2-1.0); Potassium 3.5 mmol/L (3.5-5.1); Protein, Total 7.4 g/dL (6.4-8.2)
[2018-07-15] MEDS ORDERED: NA CHLORIDE 0.9% 1,000 ML ONE (17:07)
[2018-07-15] MEDS ORDERED: ONDANSETRON 4 MG/2 ML VIAL ONE (18:06)
[2018-07-15] MEDS ORDERED: FENTANYL CITR 100 MCG/2 ML ONE (18:06)
[2018-07-15 19:30] LABS: Urine Blood TRACE (NEG); Urine Glucose NEGATIVE (NEG); Urine Protein NEGATIVE (NEG); Urine Specific Gravity 1.015 (1.005-1.030); Urine pH 5.5 (5.0-7.0)
--- NOTE | 2018-07-15 19:34 | RAD REPORT ---
EXAM DESCRIPTION: CT - Abdomen Pelvis W Contrast - 07/15/2018 7:09 pm CLINICAL HISTORY: Abdominal pain. Right lower quadrant pain COMPARISON: None. TECHNIQUE: Computed axial tomography of the abdomen and pelvis was obtained. 100 cc Isovue-300 is ad ministered intravenously. Oral contrast was given. All CT scans are performed using dose optimization technique as appropriate and may include automated exposure control or mA/KV adjustment according to patient size. FINDINGS: The liver, spleen, pancreas, adrenals and kidneys appear unremarkable. The wall of the cecum is moderately thickened. The appendix is upper limits normal caliber. Diverticula stem from the colon without evidence of diverticulitis. Umbilical hernia contains fat. The hernia sac measures 3.5 millimeters. Postsurgical changes involve the lumbar spine Small hiatal hernia IMPRESSION: Moderate thickening of the wall of the cecum may indicate inflammation or a mass.
[2018-07-15 19:35] LABS: Urine Bacteria <20 /HPF (<20); Urine Coarse Granular Casts 0-5 /LPF (NONE SEEN); Urine RBC NONE SEEN /HPF (NONE SEEN)
[2018-07-15 19:36] LABS: Urine Culture Reflex Order NOT NEEDED
[2018-07-15] MEDS ORDERED: MORPHINE 4 MG/ML SYR ONE (19:56)
[2018-07-15 21:11] LABS: Blood Morphology Comment NOT SEEN (NOT SEEN); Platelet Estimate ADEQ
--- NOTE | 2018-07-15 21:51 | ER ---
Nurse's Notes [facility] Name: Karlee Sena Age: 73 yrs Sex: Female : 1945 Arrival Date: 07/15/2018 Time: 15:34 Bed 8 Private MD: Diagnosis: Colitis Presentation: 07/15 15:50 Presenting complaint: Patient states: i have this pain that started yesterday morning tw2 when i woke up on my lower RIGHT abdomen. Transition of care: patient was not received from another setting of care. Onset of symptoms was July 15, 2018. Risk Assessment: Do you want to hurt yourself or someone else? Patient reports no desire to harm self or others. Initial Sepsis Screen: Does the patient meet any 2 criteria? No. Patient's initial sepsis screen is negative. Does the patient have a suspected source of infection? No. Patient's initial sepsis screen is negative. Care prior to arrival: None. 15:50 Method Of Arrival: Ambulatory tw2 15:50 Acuity: STAN 3 tw2 Triage Assessment: 15:52 General: Appears in no apparent distress. well groomed, Behavior is calm, cooperative, tw2 appropriate for age. Pain: Complains of pain in right lower quadrant. GI: Reports nausea, and decreased appetite since yesterday "very un normal for me' Patient currently denies diarrhea, vomiting. Historical: - Allergies: 15:52 Levaquin; tw2 15:52 PENICILLINS; tw2 - Home Meds: 16:31 Advair Diskus 500-50 mcg/dose Inhl dsdv 1 puff 2 times per day [Active]; alendronate 70 tw2 mg Oral tab 1 tab once wkly [Active]; citalopram 20 mg tab 1 tab once daily [Active]; oxybutynin chloride 5 mg Oral tab 1 tab 2 times per day [Active]; Singulair 10 mg Oral tab 1 tab once daily [Active]; losartan-hydrochlorothiazide 100-12.5 mg Oral tab 1 tab once daily [Active]; Ventolin Rotahaler/Rotacaps Inhl as needed [Active]; Verelan 300 mg Oral 1 cap once daily [Active]; solu-medrol dose jakub [Active]; calcium [Active]; aspirin 81 mg Oral chew 1 tab once daily [Active]; Albuterol Inhl twice a day [Active]; - PMHx: 15:52 CLL; Asthma; Hypertension; tw2 - PSHx: 15:52 back surgery x 2; neck surgery; pins in right leg; Tonsillectomy; tw2 - Immunization history:: Adult Immunizations. - Social history:: Smoking status: . - Ebola Screening: : Patient denies travel to an Ebola-affected area in the 21 days before illness onset. Screenin:30 Abuse screen: Denies threats or abuse. Nutritional screening: No deficits noted. tw2 Tuberculosis screening: No symptoms or risk factors identified. Fall Risk Secondary diagnosis (15 points) impaired mobility. Assessment: 16:30 General: Appears in no apparent distress. Behavior is calm, cooperative. Pain: Pain hb currently is 8 out of 10 on a pain scale. Neuro: Level of Consciousness is awake, alert, obeys commands, Oriented to person, place, time, situation. Cardiovascular: Capillary refill < 3 seconds Patient's skin is warm and dry. Respiratory: Airway is patent Respiratory effort is even, unlabored, Respiratory pattern is regular, symmetrical, Breath sounds are clear bilaterally. GI: Abdomen is non-distended, Bowel sounds present X 4 quads. Abd is soft X 4 quads Abdomen is tender to palpation RLQ Reports lower abdominal pain, nausea. : No signs and/or symptoms were reported regarding the genitourinary system. EENT: No signs and/or symptoms were reported regarding the EENT system. Derm: Skin is intact, is healthy with good turgor. Musculoskeletal: No signs and/or symptoms reported regarding the musculoskeletal system. 17:09 Reassessment: Pt completed drinking oral contrast. hb 18:00 Reassessment: Patient appears in no apparent distress at this time. Patient and/or hb family updated on plan of care and expected duration. Pain level reassessed. Patient is alert, oriented x 3, equal unlabored respirations, skin warm/dry/pink. 18:55 Reassessment: Pt ambulated to bathroom unassisted with steady gait, urine specimen hb provided. 20:15 Reassessment: Patient appears in no apparent distress at this time. Patient and/or rv family updated on plan of care and expected duration. Pain level reassessed. Patient is alert, oriented x 3, equal unlabored respirations, skin warm/dry/pink. Dr Salguero talked to the patient and explained the plan of care. Waiting for Surgeon for evaluation. patient is stable. does not complain of pain at the moment. 21:42 Reassessment: surgeon talked to the patient and explained plan of care. patient is for admission. awaiting admission orders. Vital Signs: 15:51 BP 112 / 63; Pulse 94; Resp 18; Temp 97.9; Pulse Ox 96% on R/A; Weight 72.57 kg (R); tw2 Height 5 ft. 1 in. (154.94 cm); Pain 9/10; 16:30 BP 117 / 56 LA (auto/lg); Pulse 82; Temp 98.7; Pulse Ox 95% on R/A; jp3 18:00 BP 146 / 73; Pulse 80; Resp 15; Pulse Ox 100% on R/A; hb 19:00 BP 134 / 58; Pulse 78; Resp 17; Pulse Ox 96% ; rv 19:30 BP 127 / 62; Pulse 78; Resp 15; Pulse Ox 95% ; rv 20:00 BP 103 / 53; Pulse 85; Resp 18; Pulse Ox 94% ; rv 21:00 BP 128 / 78; Pulse 78; Resp 17; Pulse Ox 95% ; rv 21:41 BP 125 / 72; Pulse 77; Resp 16; Pulse Ox 95% ; rv 23:00 BP 126 / 76; Pulse 76; Resp 17; Pulse Ox 98% ; rv 07/16 00:00 BP 122 / 71; Pulse 81; Resp 18; Temp 98; Pulse Ox 100% ; rv 07/15 15:51 Body Mass Index 30.23 (72.57 kg, 154.94 cm) tw2 ED Course: 07/15 15:34 Patient arrived in ED. rg4 15:51 Triage completed. tw2 15:51 Arm band placed on. tw2 15:55 Hans Montgomery, RN is Primary Nurse. rv 16:05 Warm blanket given. Pillow given. Pulse ox on. NIBP on. jp3 16:05 Bed in low position. Call light in reach. Side rails up X 1. Side rails up X2. jp3 16:10 Initial lab(s) drawn, by me, held in ED. Inserted saline lock: 22 gauge in right jp3 antecubital area, using aseptic technique. Blood collected. 16:25 Verbal reassurance given. jp3 16:25 Patient maintains SpO2 saturation greater than 95% on room air. jp3 16:38 [facility]. cp 16:38 Jesus Valerio MD is Attending Physician. cp 16:40 Initial lab(s) drawn, by me, sent to lab. jp3 16:49 Lipase Sent. jp3 16:49 Hepatic Function Sent. jp3 16:49 CBC with Diff Sent. jp3 16:49 Basic Metabolic Panel Sent. jp3 19:00 Urine collected: clean catch specimen, clear, gita colored. jp3 19:08 CT completed. Patient tolerated procedure well. Patient moved back from CT. mw3 19:09 CT Abd/Pelvis - PO and IV Contrast In Process Unspecified. EDMS 19:13 Urine Microscopic Only Sent. jp3 21:49 Ramya Buckley MD is Hospitalizing Provider. cp 07/16 00:09 No provider procedures requiring assistance completed. Patient admitted, IV remains in rv place. Administered Medications: 07/15 17:00 Drug: NS 0.9% 500 ml Route: IV; Rate: 500 ml/hr; Site: right antecubital; rv 17:30 Drug: NS 0.9% 1000 ml Route: IV; Rate: 100 ml/hr; Site: right antecubital; rv 18:00 Drug: fentaNYL (PF) 25 mcg Route: IVP; Site: right antecubital; rv 20:18 Follow up: Response: Pain is decreased rv 18:00 Drug: Zofran 4 mg Route: IVP; Site: right antecubital; rv 20:17 Follow up: Response: No adverse reaction rv 19:45 Drug: morphine 4 mg Route: IVP; Site: right antecubital; rv 22:11 Follow up: Response: Marked relief of symptoms; Pain is decreased rv 21:49 Not Given (Physician Discretion): Mefoxin 1 grams IVPB once over 30 mins; (mix in 50 mL cp NS) 22:00 Drug: Cipro 400 mg Volume: 200 ml; Route: IVPB; Infused Over: 60 mins; Site: right rv antecubital; 22:10 Drug: Flagyl 500 mg Volume: 100 ml; Route: IVPB; Rate: 200 ml/hr; Infused Over: 30 rv mins; Site: right antecubital; Outcome: 21:51 Decision to Hospitalize by Provider. cp 07/16 00:10 Admitted to Tele accompanied by tech, via wheelchair, room 416, Report called to rv nora Condition: good Instructed on the need for admit. 00:10 Patient left the ED. rv Signatures: Dispatcher [employer] EDMS Naren Yao PA PA cp Baxter, Heather, RN RN Carolina Yanez RN RN tw2 Amy Lima rg4 Jane Harmon 3 Hans Montgomery RN RN rv Chuy Hunter jp3
--- NOTE | 2018-07-15 21:52 | EDPHYS ---
Physician Documentation [facility] Name: Karlee Sena Age: 73 yrs Sex: Female : 1945 Arrival Date: 07/15/2018 Time: 15:34 Bed 8 Private MD: ED Physician Jesus Valerio HPI: 07/15 16:35 This 73 yrs old Female presents to ER via Ambulatory with complaints of cp Abdominal Pain. 16:35 The patient presents with abdominal pain right lower quadrant. cp 16:35 Onset: The symptoms/episode began/occurred yesterday. cp 16:35 The symptoms do not radiate. Associated signs and symptoms: Pertinent positives: cp nausea, decreased appetite, Pertinent negatives: blood in stools, chest pain, constipation, diarrhea, dysuria, fever, hematuria, vomiting. The symptoms are described as constant. Modifying factors: the symptoms are aggravated by pressure. Severity of pain: in the emergency department the pain is unchanged despite home interventions. Historical: - Allergies: 15:52 Levaquin; tw2 15:52 PENICILLINS; tw2 - Home Meds: 16:31 Advair Diskus 500-50 mcg/dose Inhl dsdv 1 puff 2 times per day [Active]; alendronate 70 tw2 mg Oral tab 1 tab once wkly [Active]; citalopram 20 mg tab 1 tab once daily [Active]; oxybutynin chloride 5 mg Oral tab 1 tab 2 times per day [Active]; Singulair 10 mg Oral tab 1 tab once daily [Active]; losartan-hydrochlorothiazide 100-12.5 mg Oral tab 1 tab once daily [Active]; Ventolin Rotahaler/Rotacaps Inhl as needed [Active]; Verelan 300 mg Oral 1 cap once daily [Active]; solu-medrol dose jakub [Active]; calcium [Active]; aspirin 81 mg Oral chew 1 tab once daily [Active]; Albuterol Inhl twice a day [Active]; - PMHx: 15:52 CLL; Asthma; Hypertension; tw2 - PSHx: 15:52 back surgery x 2; neck surgery; pins in right leg; Tonsillectomy; tw2 - Immunization history:: Adult Immunizations. - Social history:: Smoking status: . - Ebola Screening: : Patient denies travel to an Ebola-affected area in the 21 days before illness onset. ROS: 16:40 Constitutional: Negative for body aches, chills, fever, poor PO intake. cp 16:40 Eyes: Negative for injury, pain, redness, and discharge. cp 16:40 ENT: Negative for drainage from ear(s), ear pain, sore throat, difficulty swallowing, difficulty handling secretions. 16:40 Cardiovascular: Negative for chest pain, palpitations. 16:40 Respiratory: Negative for cough, shortness of breath, wheezing. 16:40 Abdomen/GI: Positive for abdominal pain, nausea, of the right lower quadrant, Negative for vomiting, diarrhea, constipation, black/tarry stool, rectal bleeding. 16:40 Back: Negative for pain at rest, pain with movement, radiated pain. 16:40 : Negative for urinary symptoms, vaginal bleeding. 16:40 Skin: Negative for rash. 16:40 Neuro: Negative for altered mental status, dizziness, headache, weakness. 16:40 All other systems are negative. Exam: 16:45 Constitutional: The patient appears in no acute distress, alert, awake, non-toxic, well cp developed, well nourished. 16:45 Head/Face: Normocephalic, atraumatic. cp 16:45 Eyes: Periorbital structures: appear normal, Conjunctiva: normal, no exudate, no injection, Sclera: no appreciated abnormality, Lids and lashes: appear normal, bilaterally. 16:45 ENT: External ear(s): are unremarkable, Nose: is normal, Mouth: Lips: moist, Oral mucosa: moist, Posterior pharynx: is normal, airway is patent, no erythema, no exudate. 16:45 Chest/axilla: Inspection: normal, Palpation: is normal, no crepitus, no tenderness. 16:45 Cardiovascular: Rate: normal, Rhythm: regular. 16:45 Respiratory: the patient does not display signs of respiratory distress, Respirations: normal, no use of accessory muscles, no retractions, no splinting, no tachypnea, labored breathing, is not present, Breath sounds: are clear throughout, no decreased breath sounds, no stridor, no wheezing. 16:45 Abdomen/GI: Inspection: abdomen appears normal, Bowel sounds: active, all quadrants, Palpation: soft, in all quadrants, moderate abdominal tenderness, in the right lower quadrant, rebound tenderness, is not appreciated, involuntary guarding, is elicited in the right lower quadrant. 16:45 Back: CVA tenderness, is absent. Vital Signs: 15:51 BP 112 / 63; Pulse 94; Resp 18; Temp 97.9; Pulse Ox 96% on R/A; Weight 72.57 kg (R); tw2 Height 5 ft. 1 in. (154.94 cm); Pain 9/10; 16:30 BP 117 / 56 LA (auto/lg); Pulse 82; Temp 98.7; Pulse Ox 95% on R/A; jp3 18:00 BP 146 / 73; Pulse 80; Resp 15; Pulse Ox 100% on R/A; hb 19:00 BP 134 / 58; Pulse 78; Resp 17; Pulse Ox 96% ; rv 19:30 BP 127 / 62; Pulse 78; Resp 15; Pulse Ox 95% ; rv 20:00 BP 103 / 53; Pulse 85; Resp 18; Pulse Ox 94% ; rv 21:00 BP 128 / 78; Pulse 78; Resp 17; Pulse Ox 95% ; rv 21:41 BP 125 / 72; Pulse 77; Resp 16; Pulse Ox 95% ; rv 23:00 BP 126 / 76; Pulse 76; Resp 17; Pulse Ox 98% ; rv 07/16 00:00 BP 122 / 71; Pulse 81; Resp 18; Temp 98; Pulse Ox 100% ; rv 07/15 15:51 Body Mass Index 30.23 (72.57 kg, 154.94 cm) tw2 MDM: 07/15 16:39 Patient medically screened. 19:45 Data reviewed: vital signs, nurses notes, lab test result(s), radiologic studies, CT cp scan. 19:45 Counseling: I had a detailed discussion with the patient and/or guardian regarding: the cp historical points, exam findings, and any diagnostic results supporting the discharge/admit diagnosis, lab results, radiology results. 19:55 Physician consultation: David Pennington MD was called at 19:50, was contacted at 19:50, cp regarding patient's condition, and will see patient in ED, shortly. 21:47 Physician consultation: Ramya Bukcley MD was called at 21:45, was contacted at 21:45, cp regarding admission, to the medical/surgical unit. 21:50 Physician consultation: David Pennington MD would like admission per Dr. Ramya Buckley MD cp in the emergency department to see patient at 21:15, reviewed labs, results of CT and discusses case with radiologist. Feels pain and symptoms due to colitis and not appendicitis. Wants patient admitted to services of hospitalist with him as surgical consult. 07/15 16:32 Order name: Basic Metabolic Panel; Complete Time: 18:05 rn 07/15 18:05 Interpretation: Normal except: GLUC 107; GFR 54; CA 8.1. cp 07/15 16:32 Order name: CBC with Diff; Complete Time: 21:43 rn 07/15 18:05 Interpretation: Normal except: WBC 17.4; MPV 7.1; JOSE% 36.1; LYM% 60.2; MN% 2.8; LYMA cp 10.5. 07/15 16:32 Order name: Hepatic Function; Complete Time: 18:05 rn 07/15 16:32 Order name: Lipase; Complete Time: 18:05 rn 07/15 18:06 Interpretation: LIP 72; Reviewed. cp 07/15 16:33 Order name: Urine Microscopic Only; Complete Time: 19:39 rn 07/15 19:16 Order name: Urine Dipstick--Ancillary (enter results); Complete Time: 19:39 cm6 07/15 16:33 Order name: CT Abd/Pelvis - PO and IV Contrast; Complete Time: 19:39 rn 07/15 21:11 Order name: Manual Differential; Complete Time: 21:43 EDMS 07/15 16:32 Order name: IV Saline Lock; Complete Time: 16:49 rn 07/15 16:32 Order name: Labs collected and sent; Complete Time: 16:49 rn 07/15 16:33 Order name: Urine Dipstick-Ancillary (obtain specimen); Complete Time: 19:13 rn 07/15 23:54 Order name: NPO EDMS Administered Medications: 17:00 Drug: NS 0.9% 500 ml Route: IV; Rate: 500 ml/hr; Site: right antecubital; rv 17:30 Drug: NS 0.9% 1000 ml Route: IV; Rate: 100 ml/hr; Site: right antecubital; rv 18:00 Drug: fentaNYL (PF) 25 mcg Route: IVP; Site: right antecubital; rv 20:18 Follow up: Response: Pain is decreased rv 18:00 Drug: Zofran 4 mg Route: IVP; Site: right antecubital; rv 20:17 Follow up: Response: No adverse reaction rv 19:45 Drug: morphine 4 mg Route: IVP; Site: right antecubital; rv 22:11 Follow up: Response: Marked relief of symptoms; Pain is decreased rv 21:49 Not Given (Physician Discretion): Mefoxin 1 grams IVPB once over 30 mins; (mix in 50 mL cp NS) 22:00 Drug: Cipro 400 mg Volume: 200 ml; Route: IVPB; Infused Over: 60 mins; Site: right rv antecubital; 22:10 Drug: Flagyl 500 mg Volume: 100 ml; Route: IVPB; Rate: 200 ml/hr; Infused Over: 30 rv mins; Site: right antecubital; Disposition: 07/16 07:01 Co-signature as Attending Physician, Jesus Valerio MD. rn Disposition: 07/15/18 21:51 Hospitalization ordered by Ramya Buckley for Inpatient Admission. Preliminary diagnosis is Colitis. - Bed requested for Telemetry/MedSurg (Inpatient). - Status is Inpatient Admission. rv - Condition is Stable. - Problem is new. - Symptoms have improved. UTI on Admission? No Signatures: Dispatcher [employer] EDMS Catalina Wyman RN RN Jesus Valerio MD MD rn Page, Corey, PA PA cp Carolina Lowry RN RN tw2 Hans Montgomery RN RN rv Corrections: (The following items were deleted from the chart) 07/15 18:05 18:05 Normal except: GLUC 107; GFR 54. cp cp 18:05 18:05 Normal except: WBC 17.4; MPV 7.1; JOSE% 36.1; LYM% 60.2; MN% 2.8. cp cp 23:43 21:51 Hospitalization Ordered by Ramya Buckley MD for Inpatient Admission. Preliminary mw diagnosis is Colitis. Bed requested for Telemetry/MedSurg (Inpatient). Status is Inpatient Admission. Condition is Stable. Problem is new. Symptoms have improved. UTI on Admission? No. cp 07/16 00:10 07/15 23:43 07/15/2018 21:51 Hospitalization Ordered by Ramya Buckley MD for Inpatient rv Admission. Preliminary diagnosis is Colitis. Bed requested for Telemetry/MedSurg (Inpatient). Status is Inpatient Admission. Condition is Stable. Problem is new. Symptoms have improved. UTI on Admission? No. mw
[2018-07-15] MEDS ORDERED: CIPROFLOXACIN 400mg IV 400 MG/200 ML BAG IV ONE (22:12)
[2018-07-15] MEDS ORDERED: METRONIDAZOLE 500mg IVPB 500 MG/100 ML BAG IV ONE (22:22)
[2018-07-15] MEDS ORDERED: Levofloxacin500mg IV 500 MG/100 ML BAG IV SCH (23:45)
[2018-07-15] MEDS ORDERED: ONDANSETRON 4 MG/2 ML VIAL IV PRN (23:45)
[2018-07-15] MEDS ORDERED: HYDROCODONE/APAP 7.5/325 MG TAB PO PRN (23:45)
[2018-07-15] MEDS ORDERED: ACETAMINOPHEN 500 MG TAB PO PRN (23:45)
[2018-07-15] MEDS ORDERED: HYDROMORPHONE HCL 1 MG/ML INJ IV PRN (23:45)
[2018-07-16 00:25] VITALS: BMI 32.7
[2018-07-16] MEDS ORDERED: PIPER/TAZO/NS 3.375gm 3.375 GM/100 ML BAG IVPB SCH (01:00)
[2018-07-16] MEDS: Ringers Lactate 1,000 ML IV SCH ×2 (01:10→09:45)
[2018-07-16 05:33] LABS: Absolute Monocytes 0.6 K/uL (0.1-1.3)
[2018-07-16 05:35] LABS: Protime INR 1.14
[2018-07-16 05:38] LABS: Absolute Lymphocytes (CBC) 9.1 K/uL (0.7-4.9); Absolute Neutrophil 4.5 K/uL (1.8-8.0); Basophils % 0.2 % (0-1.3); Eosinophils % 1.2 % (0-4.4); Hematocrit 35.3 % (36.0-45.0); MPV 6.8 fL (7.6-11.3); Monocytes % 3.8 % (3.3-12.3); RBC Red Blood Cell Count 3.72 M/uL (3.86-4.86)
[2018-07-16 05:40] LABS: Lymphocytes % 63.5 % (15.3-44.8)
[2018-07-16 05:53] LABS: Albumin 2.8 g/dL (3.4-5.0); Bilirubin Total 0.3 mg/dL (0.2-1.0); Magnesium 2.1 mg/dL (1.8-2.4); Phosphorus 4.4 mg/dL (2.5-4.9); Potassium 4.1 mmol/L (3.5-5.1); Protein, Total 6.3 g/dL (6.4-8.2)
[2018-07-16] MEDS: METRONIDAZOLE 500mg IVPB 500 MG/100 ML BAG IV SCH ×4 (05:56→23:19)
[2018-07-16] MEDS ORDERED: CEFTRIAXONE 1 GM/NS 50 ML 1 GM/50 ML BAG IV SCH (06:00)
[2018-07-16] MEDS ORDERED: CEFTRIAXONE/SWI 1gm 1 GM/10 ML SYR ONE (06:06)
--- NOTE | 2018-07-16 08:28 | RAD REPORT ---
EXAM DESCRIPTION: RAD - Abdomen Acute Series - 07/16/2018 6:20 am CLINICAL HISTORY: Abdominal pain, colitis COMPARISON: CT study July 15 FINDINGS: Shallow inspiration chest film shows minimal lung base atelectasis. No acute lung parenchy mal process. Heart size and pulmonary vasculature are normal. No pleural effusion, pneumothorax or ot her acute cardiopulmonary process seen. Contrast remains within the right-side colon and transverse colon to the splenic flexure region. Ther e has been little antegrade movement of the contrast column and colon content since prior day CT stud y. No bowel obstruction, free air or other acute findings. No suspicious calcifications. No other suspicious for significant findings. IMPRESSION: No acute chest findings. No dilated large or small bowel. Contrast remains within the colon from cecum to proximal most descen ding colon. There has been little antegrade movement of the contrast column since prior imaging.
[2018-07-16] MEDS ORDERED: LOSARTAN POTASSIUM 50 MG TABLET PO SCH (09:00)
[2018-07-16] MEDS ORDERED: HYDROCHLOROTHIAZIDE PO SCH (09:00)
[2018-07-16] MEDS ORDERED: [UNRECOGNIZED DRUG - OTHER] PO SCH (09:00)
[2018-07-16] MEDS: CITALOPRAM 10 MG TABLET PO SCH (09:00)
[2018-07-16] MEDS ORDERED: ENOXAPARIN 30 MG/0.3 ML SQ SCH (09:00)
[2018-07-16] MEDS: CALCIUM CARB 500MG/VIT D 200 IU TAB PO SCH (09:00)
[2018-07-16] MEDS ORDERED: HOME MED 1 EA UNK (Ipratropium/Albuterol Sulfate [Iprat-Albut 0.5-3(2.5) Mg/3 Ml] 3 ML) IH SCH (09:00)
[2018-07-16] MEDS ORDERED: SALMETEROL IH SCH (09:00)
[2018-07-16] MEDS: VERAPAMIL HCL 300 MG PO SCH (09:00)
[2018-07-16] MEDS ORDERED: LOSARTAN/HCTZ 50-12.5 PO SCH (09:00)
[2018-07-16] MEDS ORDERED: LOSARTAN PO SCH (09:00)
[2018-07-16] MEDS ORDERED: FLUTICASONE IH SCH (09:00)
--- NOTE | 2018-07-16 11:34 | P.PN ---
Subjective Date of Service: 07/16/18 Patient seen and examined at bedside with RN. Chart reviewed. Case discussed with general surgery. Patient this morning has positive flatulence. Has not passed bowel movement. Denies having any nausea vomiting does state that she feels much better than before. Abdominal pain is 2/10 at this time. Review of Systems 10-point ROS is otherwise unremarkable Physical Examination - Vital Signs Temperature: 98.0 F Blood Pressure: 128/57 Pulse: 83 Respirations: 18 Pulse Ox (%): 94 - Physical Exam General: Alert, In no apparent distress HEENT: Atraumatic, PERRLA, EOMI Neck: Supple, JVD not distended Respiratory: Clear to auscultation bilaterally, Normal air movement Cardiovascular: Regular rate/rhythm, Normal S1 S2 Gastrointestinal: Normal bowel sounds, No tenderness Musculoskeletal: No tenderness Integumentary: No rashes Neurological: Normal speech, Normal tone, Normal affect Lymphatics: No axilla or inguinal lymphadenopathy - Studies Laboratory Data (last 24 hrs) 07/15/18 16:10: WBC 17.4 H, Hgb 13.2, Hct 40.3, Plt Count 299 07/15/18 16:10: Sodium 139, Potassium 3.5, BUN 17, Creatinine 1.01, Glucose 107 H, Total Bilirubin 0.3, AST 16, ALT 30, Alkaline Phosphatase 73, Lipase 72 L Medications List Reviewed: Yes Assessment And Plan - Current Problems (Diagnosis) (1) Colitis Current Visit: Yes Status: Acute Plan: Patient presenting with right-sided of abdominal pain -abdominal CT consistent with cecal thickening consistent with colitis versus mass with possible appendix involvement -currently on IV Rocephin and Flagyl. -general surgery has been consulted. Appreciated recommendations at this time. -clear liquid diet and to continue IV antibiotics to see if patient has any improvement in next 24-48 hr. -currently patient on clear liquid diet tolerating well. (2) CLL (chronic lymphocytic leukemia) Current Visit: Yes Status: Chronic Plan: History of CLL - patient is in remission (3) Asthma Current Visit: Yes Status: Chronic Plan: Chronic asthma -currently stable. -will restart on inhalers Qualifiers: Asthma severity: moderate Asthma persistence: persistent Asthma complication type: uncomplicated Qualified Code(s): J45.40 - Moderate persistent asthma, uncomplicated (4) Hypertension Current Visit: Yes Status: Chronic Plan: Currently stable at this time -restart on home medication Qualifiers: Hypertension type: essential hypertension Qualified Code(s): I10 - Essential (primary) hypertension - Plan Pending clinical improvement at this time. Will continue with IV antibiotics and monitor for next 24-48 hr. Will follow up with general surgery regarding further recommendations. Discharge Plan: Home Plan to discharge in: 48 Hours - Code Status/Comfort Care Code Status Assessed: Yes Critical Care: No
--- NOTE | 2018-07-16 12:13 | P.HP ---
Certification for Inpatient Patient admitted to: Inpatient With expected LOS: >2 Midnights Patient will require the following post-hospital care: None Practitioner: I am a practitioner with admitting privileges, knowledge of patient current condition, hospital course, and medical plan of care. Services: Services provided to patient in accordance with Admission requirements found in Title 42 Section 412.3 of the Code of Federal Regulations Patient History Date of Service: 07/15/18 Reason for admission: Colitis History of Present Illness: Patient is a 73-year-old female who presents to the hospital with inflammation of the cecum. Patient had initially come in because of abdominal pain. The pain was in the right lower quadrant. It was concerning because initially the thought was patient may have appendicitis. She was having intractable nausea and vomiting as well. In the emergency room, patient had a CT scan performed because of the concern for appendicitis; however, the CT scan revealed that patient has severe cecal inflammation. There was concern for a possible malignancy. Inflammatory bowel disease is also a concern. Patient will need to be admitted to the hospital to have this further workup. At this time because of the severity of her inflammation we will go ahead and put her inpatient and keep her NPO. Patient had a significant leukocytosis. The patient will be started on antibiotics and will get General surgery to follow up with the patient as they have seen the patient in the emergency room and recommended hospitalization by our team. Allergies levofloxacin [From Levaquin] Allergy (Verified 07/16/18 03:11) Nausea/Vomiting Penicillins Allergy (Verified 07/16/18 03:11) Itching/Hives/Rash Home Medications: Albuterol Inhaler [Ventolin Inhaler*] IH PRN 07/16/18 Alendronate Sodium 70 mg PO DAILY 07/16/18 Aspirin [Aspirin EC 81 MG] 81 mg PO BEDTIME 07/16/18 Calcium Carbonate/Vitamin D3 [Calcium 600 with Vit D Chew Tb] 1,200 mg PO DAILY 07/16/18 Citalopram [Celexa*] 20 mg PO DAILY 07/16/18 Fluticasone/Salmeterol [Advair 250-50 Diskus] 50 mcg IH BID 07/16/18 Fluticasone/Vilanterol [Breo Ellipta 100-25 Mcg INH] IH DAILY 07/16/18 Ipratropium/Albuterol Sulfate [Iprat-Albut 0.5-3(2.5) mg/3 ml] 3 ml IH BID 07/16 Levocetirizine Dihydrochloride [24Hr Allergy Relief] 5 mg PO BEDTIME 07/16/18 Losartan/Hydrochlorothiazide [Losartan-Hctz 100-12.5 mg Tab] 12.5 mg PO DAILY Montelukast [Singulair*] 10 mg PO BEDTIME 07/16/18 Verapamil HCl [Verelan Pm] 300 mg PO DAILY 07/16/18 - Past Medical/Surgical History Has patient received pneumonia vaccine in the past: Yes Diabetic: No -: HTN -: Asthma -: CLL -: tonsillectomy -: neck sx -: back sx - Family History Father Family History: Reviewed- Non-Contributory - Social History Smoking Status: Former smoker Alcohol use: Yes CD- Drugs: No Caffeine use: Yes Place of Residence: Home Review of Systems 10-point ROS is otherwise unremarkable Physical Examination - Vital Signs Temperature: 98.0 F Blood Pressure: 128/57 Pulse: 83 Respirations: 18 Pulse Ox (%): 94 - Physical Exam General: Alert, In no apparent distress, Oriented x3 HEENT: Atraumatic, PERRLA, Mucous membr. moist/pink, EOMI, Sclerae nonicteric Neck: Supple, 2+ carotid pulse no bruit, No LAD, Without JVD or thyroid abnormality Respiratory: Clear to auscultation bilaterally, Normal air movement Cardiovascular: Regular rate/rhythm, Normal S1 S2 Gastrointestinal: Normal bowel sounds, Soft and benign, Non-distended, No rebound, No guarding, Tenderness Musculoskeletal: No tenderness Integumentary: No rashes Neurological: Normal gait, Normal speech, Normal strength at 5/5 x4 extr, Normal tone, Sensation intact, Cranial nerves 3-12 intact, Normal affect Lymphatics: No axilla or inguinal lymphadenopathy - Studies Laboratory Data (last 24 hrs) 07/15/18 16:10: WBC 17.4 H, Hgb 13.2, Hct 40.3, Plt Count 299 07/15/18 16:10: Sodium 139, Potassium 3.5, BUN 17, Creatinine 1.01, Glucose 107 H, Total Bilirubin 0.3, AST 16, ALT 30, Alkaline Phosphatase 73, Lipase 72 L Assessment & Plan - Problems (Diagnosis) (1) Disorder of cecum Current Visit: Yes Status: Acute (2) Hypertension Current Visit: Yes Status: Chronic Qualifiers: Hypertension type: essential hypertension Qualified Code(s): I10 - Essential (primary) hypertension - Plan Plan: 1. IV fluids and IV antibiotics 2. Stool studies 3. GI consultation as an outpt 4. Pain control 5. Outpatient colonoscopy 6. Repeat abdominal film if pain worsens to rule out perforation 7. GI and DVT prophylaxis Discharge Plan: Home Plan to discharge in: Greater than 2 days - Advance Directives Does patient have a Living Will: Yes Does patient have a Durable POA for Healthcare: Yes - Code Status/Comfort Care Code Status Assessed: Yes Code Status: Full Code Critical Care: No Time Spent Managing PTS Care (In Minutes): 45
[2018-07-16] MEDS ORDERED: IPRATROPIUM BROM 0.5MG/2.5ML IH SCH (20:00)
[2018-07-16] MEDS ORDERED: ALBUTEROL 2.5 MG/3 ML NEB SOL NEB SCH (20:00)
[2018-07-16] MEDS ORDERED: CETIRIZINE HCL 5 MG TABLET PO SCH (21:00)
[2018-07-16] MEDS ORDERED: ASPIRIN EC 81 MG TAB PO SCH (21:00)
[2018-07-16] MEDS ORDERED: MONTELUKAST 10 MG TAB PO SCH (21:00)
[2018-07-17] MEDS: METRONIDAZOLE 500mg IVPB 500 MG/100 ML BAG IV SCH ×2 (05:15→11:08)
[2018-07-17] MEDS ORDERED: LOSARTAN/HCTZ 50-12.5 PO SCH (09:00)
[2018-07-17] MEDS: CITALOPRAM 10 MG TABLET PO SCH (09:00)
[2018-07-17] MEDS: CALCIUM CARB 500MG/VIT D 200 IU TAB PO SCH (09:00)
[2018-07-17] MEDS ORDERED: CEFTRIAXONE/SWI 1gm 1 GM/10 ML SYR IV SCH (09:00)
[2018-07-17] MEDS: VERAPAMIL HCL 300 MG PO SCH (09:00)
[2018-07-17 09:27] VITALS: O2SAT 94
--- NOTE | 2018-07-17 11:16 | P.DS ---
Admission Date: 07/15/18 Discharge Date: 07/17/18 Primary Care Provider: Dr. Salazar([place], [place]) Disposition: ROUTINE DISCHARGE Discharge Condition: GOOD Reason for Admission: Colitis Consultations: Surgery consulted Procedures: CT scan: COMPARISON: None. TECHNIQUE: Computed axial tomography of the abdomen and pelvis was obtained. 100 cc Isovue-300 is administered intravenously. Oral contrast was given. All CT scans are performed using dose optimization technique as appropriate and may include automated exposure control or mA/KV adjustment according to patient size. FINDINGS: The liver, spleen, pancreas, adrenals and kidneys appear unremarkable. The wall of the cecum is moderately thickened. The appendix is upper limits normal caliber. Diverticula stem from the colon without evidence of diverticulitis. Umbilical hernia contains fat. The hernia sac measures 3.5 millimeters. Postsurgical changes involve the lumbar spine Small hiatal hernia IMPRESSION: Moderate thickening of the wall of the cecum may indicate inflammation or a mass. Acute abdominal series: COMPARISON: CT study July 15 FINDINGS: Shallow inspiration chest film shows minimal lung base atelectasis. No acute lung parenchymal process. Heart size and pulmonary vasculature are normal. No pleural effusion, pneumothorax or other acute cardiopulmonary process seen. Contrast remains within the right-side colon and transverse colon to the splenic flexure region. There has been little antegrade movement of the contrast column and colon content since prior day CT study. No bowel obstruction , free air or other acute findings. No suspicious calcifications. No other suspicious for significant findings. IMPRESSION: No acute chest findings. No dilated large or small bowel. Contrast remains within the colon from cecum to proximal most descending colon. There has been little antegrade movement of the contrast column since prior imaging. Medical Problem List: Right lower quadrant abdominal pain secondary to right-sided colitis Asthma Depression Hypertension GERD with hiatal hernia Brief History of Present Illness: 73-year-old female presented to the emergency room with abdominal pain. It was mainly to the right lower quadrant. This was associated with nausea and vomiting. Patient seen and evaluated in the emergency room. CT scan revealed inflammation to the cecal area suggestive of colitis. Due to the severity of her symptoms and CT finding, the patient was admitted for treatment. Hospital Course: Patient presented with right-sided abdominal pain, nausea and vomiting. Patient found to have right-sided colitis. Patient was admitted for treatment. Patient found to have elevated white count with improvement. Case discussed with surgery. No surgical intervention required. Her condition improved. At discharge she was able tolerate her diet. She is without any significant abdominal pain, nausea or vomiting. Her last colonoscopy was 2 years ago. She reports no abnormal finding at that time. At discharge patient will continue with Ceftin 250 mg 1 pill twice daily and Flagyl 500 mg 3 times a day for 10 days. Patient may continue with Tylenol and/or ibuprofen as needed for pain. She will continue with a low residue soft GI diet. Recommend to follow up with GI in 4-6 weeks to follow up this hospitalization as patient will require colonoscopy after that time to further evaluate. Patient with hypertension. This remained stable in her stay. At discharge she will continue with her medication of verapamil 300 mg daily and losartan/ hydrochlorothiazide 100/12.5 mg 1 pill daily. Recommend to maintain blood pressures less 150/80. Further adjustment can be done by her PCP. Patient with asthma. This remained stable in her stay. She will continue with her inhaler therapy. Patient with depression. At discharge she will continue with Celexa 20 mg daily. Patient also takes supplementation for osteoporosis. She will continue with her medication. CT scan revealed hiatal hernia. Patient likely with underlying GERD. Recommend to follow up with GI as an outpatient to further evaluate. Patient may take Pepcid over the counter as needed. Vital Signs/Physical Exam: Temp Pulse Resp BP Pulse Ox 97.9 F 83 18 155/64 H 94 07/17/18 08:00 07/17/18 09:00 07/17/18 08:00 07/17/18 09:00 07/17/18 08:00 General: Alert, In no apparent distress, Oriented x3, Cooperative HEENT: Atraumatic Neck: Supple Respiratory: Clear to auscultation bilaterally, Normal air movement Cardiovascular: Normal pulses, Regular rate/rhythm Gastrointestinal: Normal bowel sounds, Soft and benign, Non-distended, No ascites, No tenderness, No masses, No rebound, No guarding Musculoskeletal: No erythema, No tenderness, No warmth Integumentary: No tenderness/swelling, No erythema, No warmth, No cyanosis Neurological: Normal speech, Normal strength at 5/5 x4 extr, Normal tone, Normal affect Laboratory Data at Discharge: WBC 14.3 K/uL (4.3-10.9) H D 07/16/18 05:03 Hgb 11.7 g/dL (12.0-15.0) L 07/16/18 05:03 Hct 35.3 % (36.0-45.0) L 07/16/18 05:03 Plt Count 230 K/uL (152-406) D 07/16/18 05:03 PT 13.4 SECONDS (9.5-12.5) H 07/16/18 05:03 INR 1.14 07/16/18 05:03 APTT 28.6 SECONDS (24.3-36.9) 07/16/18 05:03 Sodium 140 mmol/L (136-145) 07/16/18 05:03 Potassium 4.1 mmol/L (3.5-5.1) 07/16/18 05:03 BUN 16 mg/dL (7-18) 07/16/18 05:03 Creatinine 0.70 mg/dL (0.55-1.3) 07/16/18 05:03 Glucose 105 mg/dL (74-106) 07/16/18 05:03 Phosphorus 4.4 mg/dL (2.5-4.9) 07/16/18 05:03 Magnesium 2.1 mg/dL (1.8-2.4) 07/16/18 05:03 Total Bilirubin 0.3 mg/dL (0.2-1.0) 07/16/18 05:03 AST 15 U/L (15-37) 07/16/18 05:03 ALT 24 U/L (12-78) 07/16/18 05:03 Alkaline Phosphatase 65 U/L (45-117) 07/16/18 05:03 Lipase 56 U/L (73-393) L 07/16/18 05:03 Home Medications: Albuterol Inhaler [Ventolin Inhaler*] IH PRN 07/16/18 Alendronate Sodium 70 mg PO DAILY 07/16/18 Aspirin [Aspirin EC 81 MG] 81 mg PO BEDTIME 07/16/18 Calcium Carbonate/Vitamin D3 [Calcium 600 with Vit D Chew Tb] 1,200 mg PO DAILY 07/16/18 Citalopram [Celexa*] 20 mg PO DAILY 07/16/18 Fluticasone/Salmeterol [Advair 250-50 Diskus] 50 mcg IH BID 07/16/18 Fluticasone/Vilanterol [Breo Ellipta 100-25 Mcg INH] IH DAILY 07/16/18 Ipratropium/Albuterol Sulfate [Iprat-Albut 0.5-3(2.5) mg/3 ml] 3 ml IH BID 07/16 Levocetirizine Dihydrochloride [24Hr Allergy Relief] 5 mg PO BEDTIME 07/16/18 Losartan/Hydrochlorothiazide [Losartan-Hctz 100-12.5 mg Tab] 12.5 mg PO DAILY Montelukast [Singulair*] 10 mg PO BEDTIME 07/16/18 Verapamil HCl [Verelan Pm] 300 mg PO DAILY 07/16/18 Cefuroxime [Ceftin] 250 mg PO BID #20 tab 07/17/18 metroNIDAZOLE [Flagyl] 500 mg PO Q8H #30 tablet 07/17/18 New Medications: Cefuroxime [Ceftin] 250 mg PO BID #20 tab metroNIDAZOLE [Flagyl] 500 mg PO Q8H #30 tablet Patient Discharge Instructions: 1. Recommend to follow up with her PCP in 1 week to follow up this hospitalization. 2. Patient presented with right-sided abdominal pain, nausea and vomiting. Patient found to have right-sided colitis. Patient was admitted for treatment. Patient found to have elevated white count with improvement. Case discussed with surgery. No surgical intervention required. Her condition improved. At discharge she was able tolerate her diet. She is without any significant abdominal pain, nausea or vomiting. Her last colonoscopy was 2 years ago. She reports no abnormal finding at that time. At discharge patient will continue with Ceftin 250 mg 1 pill twice daily and Flagyl 500 mg 3 times a day for 10 days. Patient may continue with Tylenol and/or ibuprofen as needed for pain. She will continue with a low residue soft GI diet. Recommend to follow up with GI in 4-6 weeks to follow up this hospitalization as patient will require colonoscopy after that time to further evaluate. 3. Patient with hypertension. This remained stable in her stay. At discharge she will continue with her medication of verapamil 300 mg daily and losartan/hydrochlorothiazide 100/12.5 mg 1 pill daily. Recommend to maintain blood pressures less 150/80. Further adjustment can be done by her PCP. 4. Patient with asthma. This remained stable in her stay. She will continue with her inhaler therapy. 5. Patient with depression. At discharge she will continue with Celexa 20 mg daily. 6. Patient also takes supplementation for osteoporosis. She will continue with her medication. 7. CT scan revealed hiatal hernia. Patient likely with underlying GERD. Recommend to follow up with GI as an outpatient to further evaluate. Patient may take Pepcid over the counter as needed. Diet: Low residue GI soft diet Activity: Fall precautions Time spent managing pt's care (in minutes): 55
[2018-07-17 12:32] VITALS: BP 134/76; TEMP 98.5
== END 2018-07-17 14:35 | disposition home or self-care (01) | DRG 392 ==
LOC: ER 15:31 → 4TH 23:45
PROVIDERS: ADMIT Hospitalist; ATTEND Hospitalist
DX: K52.9 Noninfective gastroenteritis and colitis, unspecified (principal); C95.91 Leukemia, unspecified, in remission; I10 Essential (primary) hypertension; J45.909 Unspecified asthma, uncomplicated; F32.9 Major depressive disorder, single episode, unspecified; K21.9 Gastro-esophageal reflux disease without esophagitis; K44.9 Diaphragmatic hernia without obstruction or gangrene; Z87.891 Personal history of nicotine dependence; Z88.0 Allergy status to penicillin
CPT/HCPCS: 36415; 74022; 74177; 80048; 80053; 80076; 81003; 81015; 83690; 83735; 84100; 85025; 85610; 85730; 96374; 96375; 99285; J0696; J0744; J1650; J2405; J3010; J7030; Q9967

== ENCOUNTER 2019-01-03 15:36 | Emergency (ER) | payer OTHER ==
--- NOTE | 2019-01-03 16:11 | EDPHYS ---
Physician Documentation [facility] Name: Karlee Sena Age: 73 yrs Sex: Female : 1945 Arrival Date: 01/03/2019 Time: 15:39 Bed 13 Private MD: ED Physician Diego Herring HPI: 01/03 16:07 This 73 yrs old Female presents to ER via Ambulatory with complaints of jmm Urinary Problem. 16:07 The patient presents with urinary symptoms, dysuria, hematuria, urgency. Onset: The jmm symptoms/episode began/occurred gradually, today. Modifying factors: The symptoms are alleviated by nothing, the symptoms are aggravated by nothing. Associated signs and symptoms: Pertinent positives: dysuria, hematuria, Pertinent negatives: fever, nausea, vomiting. The patient has experienced similar episodes in the past. 16:07 Patient denies abdominal pain, vomiting, body aches. jmm Historical: - Allergies: 16:36 Levaquin; ae4 16:36 PENICILLINS; ae4 - Home Meds: 16:36 Advair Diskus 500-50 mcg/dose Inhl dsdv 1 puff 2 times per day [Active]; Albuterol Inhl ae4 twice a day [Active]; alendronate 70 mg Oral tab 1 tab once wkly [Active]; aspirin 81 mg Oral chew 1 tab once daily [Active]; calcium [Active]; citalopram 20 mg tab 1 tab once daily [Active]; losartan-hydrochlorothiazide 100-12.5 mg Oral tab 1 tab once daily [Active]; oxybutynin chloride 5 mg Oral tab 1 tab 2 times per day [Active]; Singulair 10 mg Oral tab 1 tab once daily [Active]; solu-medrol dose jakub [Active]; Ventolin Rotahaler/Rotacaps Inhl as needed [Active]; Verelan 300 mg Oral 1 cap once daily [Active]; - PMHx: 16:36 Asthma; CLL; Hypertension; ae4 - Immunization history:: Adult Immunizations up to date. - Social history:: Smoking status: Patient/guardian denies using tobacco. - Ebola Screening: : Patient denies travel to an Ebola-affected area in the 21 days before illness onset No symptoms or risks identified at this time. ROS: 16:07 Constitutional: Negative for fever, chills, and weight loss, Cardiovascular: Negative [facility] for chest pain, palpitations, and edema, Respiratory: Negative for shortness of breath, cough, wheezing, and pleuritic chest pain. 16:07 Abdomen/GI: Negative for abdominal pain, nausea and vomiting, diarrhea. 16:07 : Positive for urinary symptoms. 16:07 All other systems are negative. Exam: 16:07 Constitutional: This is a well developed, well nourished patient who is awake, alert, jmm and in no acute distress. Head/Face: atraumatic. Eyes: EOMI, no conjunctival erythema appreciated ENT: Moist Mucus Membranes Neck: Trachea midline, Supple Chest/axilla: Normal chest wall appearance and motion. Cardiovascular: Regular rate and rhythm. No edema appreciated Respiratory: Normal respirations, no respiratory distress appreciated 16:07 Abdomen/GI: Inspection: abdomen appears normal, Bowel sounds: normal, Palpation: abdomen is soft and non-tender, in all quadrants. 16:07 Back: CVA tenderness, is absent, is noted bilaterally. 16:07 Skin: Appearance: Color: normal in color. 16:07 Neuro: Orientation: is normal, Mentation: is normal, Memory: is normal. 16:07 Psych: Behavior/mood is pleasant, cooperative. Vital Signs: 15:47 BP 142 / 72; Pulse 77; Resp 18; Temp 97.2; Pulse Ox 100% on R/A; Weight 74.84 kg; la1 Height 5 ft. 2 in. (157.48 cm); 15:47 Body Mass Index 30.18 (74.84 kg, 157.48 cm) la1 MDM: 15:48 Patient medically screened. [facility] 16:08 Data reviewed: vital signs, nurses notes. Counseling: I had a detailed discussion with [facility] the patient and/or guardian regarding: the historical points, exam findings, and any diagnostic results supporting the discharge/admit diagnosis, the need for outpatient follow up, to return to the emergency department if symptoms worsen or persist or if there are any questions or concerns that arise at home. ED course: Patient is alert and non toxic in appearance in the ED. Urine sent for cultures. Patient given strict return precautions. Patient understood and agrees with the plan of care. . 01/03 15:53 Order name: Urine Culture EDCT 01/03 15:57 Order name: Urine Dipstick-Ancillary (obtain specimen); Complete Time: 16:11 carlo 01/03 16:02 Order name: UA bd 01/03 16:27 Order name: Urine Microscopic Only EDMS Administered Medications: 16:16 Drug: Macrobid 100 mg Route: PO; ae4 16:41 Follow up: Response: No adverse reaction ae4 Disposition: 01/03/19 16:10 Discharged to Home. Impression: Urinary tract infection, site not specified. - Condition is Stable. - Discharge Instructions: Urinary Tract Infection, Adult. - Prescriptions for Ultracet 37.5- 325 mg Oral Tablet - take 1 tablet by ORAL route every 6 hours - for up to 5 days; do not exceed 8 tablets per day.; 12 tablet. Macrobid 100 mg Oral Capsule - take 1 capsule by ORAL route every 12 hours for 7 days; 14 capsule. - Medication Reconciliation Form, Thank You Letter, Antibiotic Education, Prescription Opioid Use form. - Follow up: Private Physician; When: 2 - 3 days; Reason: Recheck today's complaints, Continuance of care, Re-evaluation by your physician. Addendum: 01/08/2019 09:55 Co-signature as Attending Physician, Diego Herring MD I agree with the assessment and k dr plan of care. Signatures: Dispatcher [employer] EDMS Diego Herring MD MD [facility] Anuel Camacho PA PA Max Casiano, RN RN ae4 Corrections: (The following items were deleted from the chart) 01/03 16:42 16:10 01/03/2019 16:10 Discharged to Home. Impression: Urinary tract infection, site ae4 not specified. Condition is Stable. Forms are Medication Reconciliation Form, Thank You Letter, Antibiotic Education, Prescription Opioid Use. Follow up: Private Physician; When: 2 - 3 days; Reason: Recheck today's complaints, Continuance of care, Re-evaluation by your physician. keven
--- NOTE | 2019-01-03 16:11 | ER ---
Nurse's Notes [facility] Name: Karlee Sena Age: 73 yrs Sex: Female : 1945 Arrival Date: 01/03/2019 Time: 15:39 Bed 13 Private MD: Diagnosis: Urinary tract infection, site not specified Presentation: 01/03 15:46 Presenting complaint: Patient states: I feel like I have to pee all the time and I am la1 passing blood, it started this morning. Transition of care: patient was not received from another setting of care. Onset of symptoms was January 03, 2019. Risk Assessment: Do you want to hurt yourself or someone else? Patient reports no desire to harm self or others. Initial Sepsis Screen: Does the patient meet any 2 criteria? No. Patient's initial sepsis screen is negative. Does the patient have a suspected source of infection? No. Patient's initial sepsis screen is negative. Care prior to arrival: None. 15:46 Method Of Arrival: Ambulatory la1 15:46 Acuity: STAN 4 la1 Triage Assessment: 16:41 General: Behavior is calm, cooperative. ae4 Historical: - Allergies: 16:36 Levaquin; ae4 16:36 PENICILLINS; ae4 - Home Meds: 16:36 Advair Diskus 500-50 mcg/dose Inhl dsdv 1 puff 2 times per day [Active]; Albuterol Inhl ae4 twice a day [Active]; alendronate 70 mg Oral tab 1 tab once wkly [Active]; aspirin 81 mg Oral chew 1 tab once daily [Active]; calcium [Active]; citalopram 20 mg tab 1 tab once daily [Active]; losartan-hydrochlorothiazide 100-12.5 mg Oral tab 1 tab once daily [Active]; oxybutynin chloride 5 mg Oral tab 1 tab 2 times per day [Active]; Singulair 10 mg Oral tab 1 tab once daily [Active]; solu-medrol dose jakub [Active]; Ventolin Rotahaler/Rotacaps Inhl as needed [Active]; Verelan 300 mg Oral 1 cap once daily [Active]; - PMHx: 16:36 Asthma; CLL; Hypertension; ae4 - Immunization history:: Adult Immunizations up to date. - Social history:: Smoking status: Patient/guardian denies using tobacco. - Ebola Screening: : Patient denies travel to an Ebola-affected area in the 21 days before illness onset No symptoms or risks identified at this time. Screenin:40 Abuse screen: Denies threats or abuse. Nutritional screening: No deficits noted. ae4 Tuberculosis screening: No symptoms or risk factors identified. Fall Risk None identified. Assessment: 15:54 General: Appears in no apparent distress. comfortable. Pain: Complains of pain in ae4 meatus Pain does not radiate. Neuro: Level of Consciousness is awake, alert, obeys commands, Oriented to person, place, time, situation, Appropriate for age. Cardiovascular: Patient's skin is warm and dry. Respiratory: Airway is patent Respiratory effort is even, pursed lip, Mildly labored, patient reports hx of asthma, used her. 15:54 GI: No signs and/or symptoms were reported involving the gastrointestinal system. : ae4 Urine is blood tinged, Reports burning with urination, incontinence, urgency. EENT: No signs and/or symptoms were reported regarding the EENT system. Derm: Skin is pink, warm \\T\\ dry. Musculoskeletal: Reports A "heavy" feeling to the suprapubic area. Vital Signs: 15:47 BP 142 / 72; Pulse 77; Resp 18; Temp 97.2; Pulse Ox 100% on R/A; Weight 74.84 kg; la1 Height 5 ft. 2 in. (157.48 cm); 15:47 Body Mass Index 30.18 (74.84 kg, 157.48 cm) la1 ED Course: 15:39 Patient arrived in ED. mr 15:39 Anuel Camacho PA is PHCP. [facility] 15:39 Diego Herring MD is Attending Physician. [facility] 15:47 Triage completed. la1 15:47 Arm band placed on left wrist. la1 15:48 Max Valdez, CLIVE is Primary Nurse. ae4 16:09 Urine collected: clean catch specimen, negrita blood, SENT TO LAB FOR UA AND JAYCEE. mh5 16:10 Patient has correct armband on for positive identification. Bed in low position. Call [facility] light in reach. Side rails up X 1. Adult w/ patient. Warm blanket given. Pulse ox on. NIBP on. 16:11 UA Sent. mh5 16:11 Urine Microscopic Only Sent. mh5 16:11 Urine Culture Sent. mh5 16:40 No provider procedures requiring assistance completed. Patient did not have IV access ae4 during this emergency room visit. Administered Medications: 16:16 Drug: Macrobid 100 mg Route: PO; ae4 16:41 Follow up: Response: No adverse reaction ae4 Outcome: 16:10 Discharge ordered by . [facility] 16:40 Discharged to home ambulatory, with significant other. ae4 16:40 Condition: stable 16:40 Discharge instructions given to patient, Instructed on discharge instructions, follow up and referral plans. medication usage, Demonstrated understanding of instructions, Prescriptions given X 2. 16:42 Patient left the ED. ae4 Addendum: 01/06/2019 12:52 Addendum: Culture Results: Positive urine culture. Bacteria is resistant to, has s s intermediate sensitivity, or is not tested against prescribed antibiotics. Report given to GLO for further evaluation and then to broadcast checker for follow up with patient. Phone call Attempt #1 Patient reports that her symptoms have improved drastically and has a follow up appointment next week with PCP. Signatures: Anuel Camacho PA PA jmm TeresaLori mr LariosNicole harman, RN RN Joselo Rabago, HEATER OPERATOR-C HEATER OPERATOR-Cla1 Mora Nascimento [facility] Max Valdez RN RN ae4
[2019-01-03] MEDS ORDERED: NITROFURAN MACRO 100 MG CAP PO ONE (16:15)
[2019-01-03 16:18] LABS: Urine Appearance TURBID; Urine Blood 3+ (NEG); Urine Color RED; Urine Glucose NEGATIVE (NEG); Urine Protein 2+ (NEG); Urine Specific Gravity 1.015 (1.005-1.030); Urine pH 5.5 (5.0-7.0)
[2019-01-03 16:26] LABS: Urine Bilirubin 3+ (NEG); Urine Microscopic Reflex ORDER UMIC
[2019-01-03 16:27] LABS: Urine Bacteria <20 /HPF (<20); Urine Culture Reflex Order NOT NEEDED; Urine Mucus 2+ /HPF (NONE SEEN); Urine RBC TNTC /HPF (NONE SEEN)
[2019-01-03 17:31] VITALS: BP 142/72; TEMP 97.2; O2SAT 100
== END 2019-01-03 16:42 | disposition home or self-care (01) ==
LOC: ER 15:36
DX: N39.0 Urinary tract infection, site not specified (principal); Z88.0 Allergy status to penicillin; Z88.1 Allergy status to other antibiotic agents; J45.909 Unspecified asthma, uncomplicated; I10 Essential (primary) hypertension
CPT/HCPCS: 81003; 81015; 87077; 87086; 87088; 87186; 99284

== ENCOUNTER 2019-01-26 19:10 | Emergency (ER) | payer OTHER ==
[2019-01-26] MEDS ORDERED: PHENAZOPYRIDINE 100MG TAB PO ONE (19:51)
[2019-01-26] MEDS ORDERED: SMZ./TMP. 800/160 MG TABLET ONE (19:52)
--- NOTE | 2019-01-26 19:55 | ER ---
Nurse's Notes [facility] Name: Karlee Sena Age: 73 yrs Sex: Female : 1945 Arrival Date: 01/26/2019 Time: 19:15 Bed 23 Private MD: Diagnosis: Urinary tract infection, site not specified Presentation: 01/26 19:24 Presenting complaint: Patient states: i noticed today i have to pee all day long, mg2 bloody with clots, with burning micturition. Transition of care: patient was not received from another setting of care. Onset of symptoms was January 26, 2019. Risk Assessment: Do you want to hurt yourself or someone else? Patient reports no desire to harm self or others. Initial Sepsis Screen: Does the patient meet any 2 criteria? No. Patient's initial sepsis screen is negative. Does the patient have a suspected source of infection? No. Patient's initial sepsis screen is negative. Care prior to arrival: None. 19:24 Method Of Arrival: Ambulatory mg2 19:24 Acuity: STAN 4 mg2 Historical: - Allergies: 19:27 Levaquin; mg2 19:27 PENICILLINS; mg2 - PMHx: 19:27 Asthma; CLL; Hypertension; mg2 - PSHx: 19:27 right leg surgery; back fusion; mg2 - Immunization history:: Flu vaccine is up to date. - Social history:: Smoking status: Patient/guardian denies using tobacco, Patient uses alcohol, occasionally. Patient/guardian denies using street drugs, IV drugs. - Ebola Screening: : No symptoms or risks identified at this time. Screenin:45 Abuse screen: Denies threats or abuse. Nutritional screening: No deficits noted. tr5 Tuberculosis screening: No symptoms or risk factors identified. Fall Risk None identified. Assessment: 19:45 General: Appears in no apparent distress. Behavior is calm, cooperative, appropriate tr5 for age. Pain: Denies pain. Neuro: Level of Consciousness is awake, alert, obeys commands, Oriented to person, place, time, Admissions Rn are equal bilaterally Moves all extremities. Cardiovascular: Heart tones present. Respiratory: Airway is patent Respiratory effort is even, unlabored, Respiratory pattern is regular, symmetrical. GI: No signs and/or symptoms were reported involving the gastrointestinal system. : Reports inability to void, pain Blood clots in urine. : Reports incontinence. EENT: No signs and/or symptoms were reported regarding the EENT system. Derm: No signs and/or symptoms reported regarding the dermatologic system. Musculoskeletal: No signs and/or symptoms reported regarding the musculoskeletal system. Vital Signs: 19:29 BP 159 / 87; Pulse 93; Resp 18; Temp 97.8; Pulse Ox 100% on R/A; Weight 76.2 kg; Height mg2 5 ft. 2 in. (157.48 cm); 19:29 Body Mass Index 30.73 (76.20 kg, 157.48 cm) mg2 ED Course: 19:15 Patient arrived in ED. mr 19:26 Triage completed. mg2 19:29 Arm band placed on. mg2 19:31 [facility]ys[facility] Servin [facility]C [facility] kb 19:31 Naren Barker MD is Attending Physician. kb 19:40 Shayne Ambrosio RN is Primary Nurse. tr5 19:40 Urine collected: clean catch specimen, negrita blood. aa1 19:45 Bed in low position. Call light in reach. Side rails up X 1. tr5 19:59 No provider procedures requiring assistance completed. Patient did not have IV access tr5 during this emergency room visit. Administered Medications: 19:52 Drug: Bactrim (160 mg-800 mg (DS) 1 tablet Route: PO; tr5 19:53 Drug: Pyridium 200 mg Route: PO; tr5 Outcome: 19:54 Discharge ordered by . kb 19:59 Discharged to home ambulatory. tr5 19:59 Condition: stable 19:59 Discharge instructions given to patient, Instructed on discharge instructions, follow up and referral plans. medication usage, Demonstrated understanding of instructions, follow-up care, medications, Prescriptions given X 2. 20:01 Patient left the ED. tr5 Signatures: Deysi Servin FNP-C FNP-Ckb Autenrieth, Alissa, RN RN aa TeresaLori mr John Ferguson RN RN mg2 Shayne Ambrosio RN RN tr5
--- NOTE | 2019-01-26 19:55 | EDPHYS ---
Physician Document[facility] Name: Karlee Sena Age: 73 yrs Sex: Female : 1945 Arrival Date: 01/26/2019 Time: 19:15 Bed 23 Private MD: ED Physician Naren Barker HPI: 01/26 19:53 This 73 yrs old Female presents to ER via Ambulatory with complaints of kb Urinary Problem. 19:53 The patient presents with urinary symptoms, dysuria, frequency, hematuria. Onset: The kb symptoms/episode began/occurred this morning. Modifying factors: The symptoms are alleviated by nothing, the symptoms are aggravated by urinating. Associated signs and symptoms: Pertinent positives: dysuria, hematuria, urinary frequency. Severity of symptoms: At their worst the symptoms were moderate, in the emergency department the symptoms are unchanged. The patient has experienced similar episodes in the past, a few times. The patient has not recently seen a physician. Historical: - Allergies: 19:27 Levaquin; mg2 19:27 PENICILLINS; mg2 - PMHx: 19:27 Asthma; CLL; Hypertension; mg2 - PSHx: 19:27 right leg surgery; back fusion; mg2 - Immunization history:: Flu vaccine is up to date. - Social history:: Smoking status: Patient/guardian denies using tobacco, Patient uses alcohol, occasionally. Patient/guardian denies using street drugs, IV drugs. - Ebola Screening: : No symptoms or risks identified at this time. ROS: 19:52 Constitutional: Negative for fever, chills, and weight loss, Neck: Negative for injury, kb pain, and swelling, Cardiovascular: Negative for chest pain, palpitations, and edema, Respiratory: Negative for shortness of breath, cough, wheezing, and pleuritic chest pain, Abdomen/GI: Negative for abdominal pain, nausea, vomiting, diarrhea, and constipation, Back: Negative for injury and pain, MS/Extremity: Negative for injury and deformity, Skin: Negative for injury, rash, and discoloration, Neuro: Negative for headache, weakness, numbness, tingling, and seizure. 19:52 : Positive for urinary symptoms, urinary frequency, hematuria, burning with urination. Exam: 19:52 Constitutional: This is a well developed, well nourished patient who is awake, alert, kb and in no acute distress. Head/Face: Normocephalic, atraumatic. Neck: Trachea midline, no thyromegaly or masses palpated, and no cervical lymphadenopathy. Supple, full range of motion without nuchal rigidity, or vertebral point tenderness. No Meningismus. Chest/axilla: Normal chest wall appearance and motion. Nontender with no deformity. No lesions are appreciated. Cardiovascular: Regular rate and rhythm with a normal S1 and S2. No gallops, murmurs, or rubs. Normal PMI, no JVD. No pulse deficits. Respiratory: Lungs have equal breath sounds bilaterally, clear to auscultation and percussion. No rales, rhonchi or wheezes noted. No increased work of breathing, no retractions or nasal flaring. Abdomen/GI: Soft, non-tender, with normal bowel sounds. No distension or tympany. No guarding or rebound. No evidence of tenderness throughout. Back: No spinal tenderness. No costovertebral tenderness. Full range of motion. Skin: Warm, dry with normal turgor. Normal color with no rashes, no lesions, and no evidence of cellulitis. MS/ Extremity: Pulses equal, no cyanosis. Neurovascular intact. Full, normal range of motion. Neuro: Awake and alert, GCS 15, oriented to person, place, time, and situation. Cranial nerves II-XII grossly intact. Motor strength 5/5 in all extremities. Sensory grossly intact. Cerebellar exam normal. Normal gait. Vital Signs: 19:29 BP 159 / 87; Pulse 93; Resp 18; Temp 97.8; Pulse Ox 100% on R/A; Weight 76.2 kg; Height mg2 5 ft. 2 in. (157.48 cm); 19:29 Body Mass Index 30.73 (76.20 kg, 157.48 cm) mg2 MDM: 19:33 Patient medically screened. kb 19:52 Data reviewed: vital signs, nurses notes. Data interpreted: Pulse oximetry: on room air kb is 100 %. Interpretation: normal. Counseling: I had a detailed discussion with the patient and/or guardian regarding: the historical points, exam findings, and any diagnostic results supporting the discharge/admit diagnosis, lab results, the need for outpatient follow up, a family practitioner, to return to the emergency department if symptoms worsen or persist or if there are any questions or concerns that arise at home. 01/26 19:41 Order name: Urine Microscopic Only mw2 01/26 19:43 Order name: Urine Dipstick--Ancillary (enter results) mw2 01/26 19:27 Order name: Urine Dipstick-Ancillary (obtain specimen); Complete Time: 19:41 kb Administered Medications: 19:52 Drug: Bactrim (160 mg-800 mg (DS) 1 tablet Route: PO; tr5 19:53 Drug: Pyridium 200 mg Route: PO; tr5 Disposition: 01/27 15:14 Co-signature as Attending Physician, Naren Barker MD I agree with the assessment and tita plan of care. Disposition: 01/26/19 19:54 Discharged to Home. Impression: Urinary tract infection, site not specified. - Condition is Stable. - Discharge Instructions: Urinary Tract Infection, Adult, [id number]. - Prescriptions for Pyridium 200 mg Oral Tablet - take 1 tablet by ORAL route every 8 hours for 3 days; 9 tablet. Bactrim DS 800- 160 mg Oral Tablet - take 1 tablet by ORAL route every 12 hours for 7 days; 14 tablet. - Medication Reconciliation Form, Thank You Letter, Antibiotic Education, Prescription Opioid Use form. - Follow up: Emergency Department; When: As needed; Reason: Worsening of condition. Follow up: Private Physician; When: 2 - 3 days; Reason: Recheck today's complaints, Continuance of care, Re-evaluation by your physician. Signatures: Dispatcher [employer] EDSC Deysi Servin, SARINA HERNANDEZ-Naren Romero MD MD cha Gardose, Michele, RN RN mg2 Rodriguez, Tommie, RN RN tr5 Corrections: (The following items were deleted from the chart) 01/26 20:01 19:54 01/26/2019 19:54 Discharged to Home. Impression: Urinary tract infection, site tr5 not specified. Condition is Stable. Forms are Medication Reconciliation Form, Thank You Letter, Antibiotic Education, Prescription Opioid Use. Follow up: Emergency Department; When: As needed; Reason: Worsening of condition. Follow up: Private Physician; When: 2 - 3 days; Reason: Recheck today's complaints, Continuance of care, Re-evaluation by your physician. kb
[2019-01-26 20:03] LABS: Urine Bacteria 20-50 /HPF (<20); Urine Culture Reflex Order REFLEXED; Urine Mucus 2+ /HPF (NONE SEEN); Urine RBC TNTC /HPF (NONE SEEN)
[2019-01-26 20:04] LABS: Urine Blood 3+ (NEG); Urine Glucose TRACE (NEG); Urine Protein 3+ (NEG); Urine Specific Gravity 1.015 (1.005-1.030)
[2019-01-26 22:42] VITALS: BP 159/87; TEMP 97.8; O2SAT 100
== END 2019-01-26 20:01 | disposition home or self-care (01) ==
LOC: ER 19:10
DX: N39.0 Urinary tract infection, site not specified (principal); Z88.0 Allergy status to penicillin; Z88.1 Allergy status to other antibiotic agents
CPT/HCPCS: 81003; 81015; 87077; 87086; 87088; 87186; 99283

== ENCOUNTER 2020-12-06 14:25 | Emergency (ER) | payer OTHER ==
--- NOTE | 2020-12-06 15:33 | RAD REPORT ---
EXAM DESCRIPTION: RAD -Hand Left 3 View - 12/06/2020 3:27 pm CLINICAL HISTORY: Left hand pain FINDINGS: No fracture or dislocation is seen. 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 Mild osteoarthritis proximal and DIP joints. Osteoarthritis radial carpal joint. Bones are osteoporotic
--- NOTE | 2020-12-06 15:39 | EDPHYS ---
Physician Documentation [facility] Name: Karlee Sena Age: 75 yrs Sex: Female : 1945 Arrival Date: 12/06/2020 Time: 14:28 Bed 12 Private MD: ED Physician Ramya Gamez HPI: 12/06 15:04 This 75 yrs old Female presents to ER via Ambulatory with complaints of Hand kb Injury - left, Fall Injury. 15:04 The patient or guardian reports pain, swelling. The complaints affect the dorsum of kb left hand. Context: The problem was sustained at home, resulted from a fall, while walking. Onset: The symptoms/episode began/occurred 3 day(s) ago. Modifying factors: The symptoms are alleviated by nothing, the symptoms are aggravated by nothing. Associated signs and symptoms: The patient has no apparent associated signs or symptoms. Severity of symptoms: At their worst the symptoms were moderate, in the emergency department the symptoms are unchanged. The patient has not experienced similar symptoms in the past. The patient has not recently seen a physician. Pt states she tripped going out of the door on . States she hit her left jain and injured her left hand. Denies loc, headache, dizziness. States she came today because her hand seems to be swelling more and is painful. . Historical: - Allergies: 14:39 Levaquin; ss 14:39 PENICILLINS; ss - PMHx: 14:39 Asthma; CLL; Hypertension; ss - Immunization history:: Last tetanus immunization: unknown. - Social history:: Smoking status: Patient denies any tobacco usage or history of. ROS: 15:06 Constitutional: Negative for fever, chills, and weight loss. kb 15:06 MS/extremity: Positive for pain, swelling, tenderness, of the dorsum of left hand. 15:06 Skin: Positive for abrasion(s), of the left jain. 15:06 All other systems are negative. Exam: 15:09 Constitutional: This is a well developed, well nourished patient who is awake, alert, kb and in no acute distress. Head/Face: Normocephalic, atraumatic. Eyes: Pupils equal round and reactive to light, extra-ocular motions intact. Lids and lashes normal. Conjunctiva and sclera are non-icteric and not injected. Cornea within normal limits. Periorbital areas with no swelling, redness, or edema. ENT: Moist Mucous membranes Respiratory: Respirations even and unlabored. No increased work of breathing, no retractions or nasal flaring. Neuro: Awake and alert, GCS 15, oriented to person, place, time, and situation. Moves all extremities. Normal gait. Psych: Awake, alert, with orientation to person, place and time. Behavior, mood, and affect are within normal limits. 15:09 Musculoskeletal/extremity: Extremities: grossly normal except: noted in the dorsum of left hand: pain, swelling, ROM: intact in all extremities, Circulation is intact in all extremities. Sensation intact. 15:09 Skin: injury, abrasion(s), small abrasion noted, of the left jain. Vital Signs: 14:37 BP 136 / 68; Pulse 88; Resp 18 S; Temp 97.6(TE); Pulse Ox 96% on R/A; Weight 77.11 kg ss (R); Height 5 ft. 1 in. (154.94 cm) (R); 14:37 Body Mass Index 32.12 (77.11 kg, 154.94 cm) ss MDM: 14:59 Patient medically screened. kb 15:08 Data reviewed: vital signs, nurses notes. Data interpreted: Pulse oximetry: on room air kb is 96 %. Interpretation: normal. 15:38 Counseling: I had a detailed discussion with the patient and/or guardian regarding: the kb historical points, exam findings, and any diagnostic results supporting the discharge/admit diagnosis, radiology results, the need for outpatient follow up, a family practitioner, to return to the emergency department if symptoms worsen or persist or if there are any questions or concerns that arise at home. 12/06 15:03 Order name: Hand Left 3 View XRAY; Complete Time: 15:37 kb Administered Medications: No medications were administered Disposition Summary: 12/06/20 15:38 Discharge Ordered Location: Home kb Condition: Stable kb Diagnosis - Pain in left hand kb Followup: kb - With: Emergency Department - When: As needed - Reason: Worsening of condition Followup: kb - With: Private Physician - When: 2 - 3 days - Reason: Recheck today's complaints, Continuance of care, Re-evaluation by your physician Discharge Instructions: - Discharge Summary Sheet kb - Musculoskeletal Pain kb Forms: - Medication Reconciliation Form kb - Thank You Letter kb - Antibiotic Education kb - Prescription Opioid Use kb Addendum: 12/08/2020 23:05 Co-signature as Attending Physician, Ramya Gamez MD. m a2 Signatures: Dispatcher [employer] Deysi Gifford FNP-C FNP-Ckb Smirch, Shelby, RN RN Ramya Gamez MD MD ma2
--- NOTE | 2020-12-06 15:39 | ER ---
Nurse's Notes [facility] Name: Karlee Sena Age: 75 yrs Sex: Female : 1945 Arrival Date: 12/06/2020 Time: 14:28 Bed 12 Private MD: Diagnosis: Pain in left hand Presentation: 12/06 14:37 Chief complaint: Patient states: "I fell on and my left hand has been hurting ss since then". Pt reports she landed on left side and did hit left church on concrete, denies LOC. Denies any other complaints other than pain to left hand. Denies taking anticoagulants, reports she only takes aspirin. Coronavirus screen: At this time, the client does not indicate any symptoms associated with coronavirus-19. Ebola Screen: No symptoms or risks identified at this time. Initial Sepsis Screen: Does the patient meet any 2 criteria? No. Patient's initial sepsis screen is negative. Does the patient have a suspected source of infection? No. Patient's initial sepsis screen is negative. Risk Assessment: Do you want to hurt yourself or someone else? Patient reports no desire to harm self or others. Onset of symptoms was November 2020. 14:37 Acuity: STAN 4 ss 14:37 Method Of Arrival: Ambulatory ss Triage Assessment: 14:43 Injury Description: Fall on . aa5 Historical: - Allergies: 14:39 Levaquin; ss 14:39 PENICILLINS; ss - PMHx: 14:39 Asthma; CLL; Hypertension; ss - Immunization history:: Last tetanus immunization: unknown. - Social history:: Smoking status: Patient denies any tobacco usage or history of. Screenin:43 Abuse screen: Denies threats or abuse. Nutritional screening: No deficits noted. aa5 Tuberculosis screening: No symptoms or risk factors identified. Fall Risk Fall in past 12 months (25 points). Gait- Weak (10 pts.). Total Contreras Fall Scale indicates Low Risk Score (25-44 pts). Fall prevention measures have been instituted. Side Rails Up X 2 Placed close to Nursing Station. Assessment: 14:40 General: Appears comfortable, Behavior is calm, cooperative. Pain: Complains of pain in aa5 dorsum of left hand. Neuro: Level of Consciousness is awake, alert, obeys commands, Oriented to person, place, time, situation. Cardiovascular: Patient's skin is warm and dry. Respiratory: Airway is patent Respiratory effort is even, unlabored, Respiratory pattern is regular, symmetrical. GI: No signs and/or symptoms were reported involving the gastrointestinal system. : No signs and/or symptoms were reported regarding the genitourinary system. EENT: No signs and/or symptoms were reported regarding the EENT system. Derm: Skin is pink, warm \\T\\ dry. small abrasion noted to left church. Musculoskeletal: Reports pain in dorsum of left hand Mild swelling noted to dorsum of left hand. 15:45 Reassessment: Patient is alert, oriented x 3, equal unlabored respirations, skin aa5 warm/dry/pink. Vital Signs: 14:37 BP 136 / 68; Pulse 88; Resp 18 S; Temp 97.6(TE); Pulse Ox 96% on R/A; Weight 77.11 kg ss (R); Height 5 ft. 1 in. (154.94 cm) (R); 14:37 Body Mass Index 32.12 (77.11 kg, 154.94 cm) ss ED Course: 14:28 Patient arrived in ED. am2 14:37 Arm band placed on. ss 14:39 Triage completed. ss 14:40 Patient has correct armband on for positive identification. Bed in low position. Call aa5 light in reach. 14:41 Polina Carbone, RN is Primary Nurse. aa5 14:59 [facility]C [facility]. kb 14:59 Ramya Gamez MD is Attending Physician. kb 15:26 Hand Left 3 View XRAY In Process Unspecified. EDMS 15:45 No provider procedures requiring assistance completed. Patient did not have IV access aa5 during this emergency room visit. Administered Medications: No medications were administered Outcome: 15:38 Discharge ordered by . kb 15:45 Discharged to home ambulatory. aa5 15:45 Condition: good 15:45 Discharge instructions given to patient, Instructed on discharge instructions, follow up and referral plans. Demonstrated understanding of instructions, follow-up care. 15:47 Patient left the ED. aa5 Signatures: Dispatcher [employer] EDCT Deysi Servin FNP-C FNP-Polina Bell RN RN aa5 Nicole Pascal CLIVE RN ss Tina Kirk am2 Corrections: (The following items were deleted from the chart) 14:44 14:37 Chief complaint: Patient states: "I fell on and my left hand has been aa5 hurting since then". Pt reports she landed on left side and did hit left church on concrete, denies LOC. Denies any other complaints other than pain to left hand. ss
[2020-12-06 15:54] VITALS: BP 136/68; TEMP 97.6; O2SAT 96
== END 2020-12-06 15:47 | disposition home or self-care (01) ==
LOC: ER 14:25
DX: M79.642 Pain in left hand (principal); S00.81XA Abrasion of other part of head, initial encounter; W01.198A Fall on same level from slipping, tripping and stumbling with subsequent striking against other object, initial encounter; Y93.01 Activity, walking, marching and hiking; I10 Essential (primary) hypertension; Z88.0 Allergy status to penicillin; Z88.1 Allergy status to other antibiotic agents
CPT/HCPCS: 99283

== ENCOUNTER 2024-06-05 07:55 | Day surgery (SDC) | payer OTHER ==
[2024-05-17 09:55] LABS: Absolute Basophils 0.1 K/uL (0-0.5); Absolute Eosinophils 0.7 K/uL (0-0.5); Absolute Monocytes 0.6 K/uL (0.1-1.3); Absolute Neutrophil 3.6 K/uL (1.8-8.0); Basophils % 0.3 % (0-1.3); Eosinophils % 3.3 % (0-4.4); Hemoglobin 11.1 g/dL (12.0-15.0); Lymphocytes % 76.7 % (15.3-44.8); MCH 28.9 pg (27.0-35.0); MCHC 32.8 g/dL (32.0-36.0); MCV 88.2 fL (80-100); MPV 6.8 fL (7.6-11.3); Monocytes % 2.6 % (3.3-12.3); Neutrophils % 17.1 % (41.7-73.7); Nucleated RBC Absolute Count 0.1 (0-0); Nucleated Red Blood Cells % 0.3 % (0-0); Platelets 245 thou/uL (152-406); RBC Red Blood Cell Count 3.86 M/uL (3.86-4.86); Red Cell Distribution Width 15.5 % (12.1-15.2)
[2024-05-17 10:14] LABS: Anion Gap 8.4 mEq/L (5.0-15.0); Potassium 3.4 mEq/L (3.5-5.1)
[2024-05-17 13:00] LABS: Atypical Lymphocytes 5 %; Differential Total Cells Count 100; Eosinophils 3 % (0-3); Lymphocytes 65 % (15-42); Monocytes 2 % (0-10); Platelet Estimate ADEQ; Reactive Lymphocytes 3 %; Segmented Neutrophils 22 % (40-80)
[2024-05-17 13:01] LABS: Blood Morphology Comment NOT SEEN (NOT SEEN)
--- NOTE | 2024-05-18 14:19 | EKG ---
Test Date: 2024-05-17 Test Time: 09:33:24 Epilepsy Physician: ILENE MEASUREMENT RESULTS: Intervals: Rate: 78 GA: 150 QRSD: 74 QT: 400 QTc: 456 [place]: P: -71 GA: 150 QRS: 1 T: 57 INTERPRETIVE STATEMENTS: Unusual P axis, possible ectopic atrial rhythm Minimal voltage criteria for LVH, may be normal variant Abnormal ECG No previous ECG available for comparison Electronically Signed On 05-18-24 14:13:54 CDT by Sylvester Hollingsworth
[2024-06-05] MEDS ORDERED: CEFAZOLIN SODIUM 1 GM/VIAL ONE (08:11)
[2024-06-05] MEDS: Ringers Lactate 1,000 ML IV ONE (08:51)
[2024-06-05] MEDS ORDERED: FENTANYL CITR 100 MCG/2 ML ONE (09:11)
[2024-06-05] MEDS ORDERED: propofoL 200 MG/20 ML VIAL IV ONE (09:11)
[2024-06-05] MEDS ORDERED: ONDANSETRON 4 MG/2 ML VIAL ONE (09:11)
[2024-06-05] MEDS ORDERED: LIDOCAINE 1% MPF 5 ML VIAL ONE (09:11)
[2024-06-05] MEDS ORDERED: GLYCOPYRROLATE 0.2 MG/ML SYR ONE (09:47)
[2024-06-05] MEDS ORDERED: MORPHINE 10 MG/ML VIAL ONE (10:02)
[2024-06-05] MEDS: HYDROMORPHONE HCL 0.5 MG/0.5 ML INJ ONE ×2 (10:43→10:49)
[2024-06-05 12:11] VITALS: BP 112/60; TEMP 97.1; O2SAT 95
--- NOTE | 2024-06-05 21:34 | OP ---
Date of Procedure: 06/05/2024 Surgeon: Danny Wong MD Preoperative Diagnosis: Right hand carpal tunnel syndrome with right fourth trigger digit. Postoperative Diagnosis: Right hand carpal tunnel syndrome with right fourth trigger digit. Procedures: 1. Right fourth trigger digit release. 2. Right open carpal tunnel release. Estimated Blood Loss: Less than 3 cc. Complications: None. Specimens: No pathology specimens sent. Indications For Operation: Ms. Sena is an 79-year-old female who reports she had trouble with the right hand for some time. She describes numbness in the first 3 digits. She does have testing, whic h demonstrates carpal tunnel syndrome. Also is troubled by a right fourth digit which clips and lock s. Risks, benefits, and alternatives of different methods of treating these problems have been discu ssed with her. She opts for release of the fourth trigger digit as well as the carpal tunnel syndrom e and risks, benefits, alternatives of different methods of treating this, have been discussed with h er. She states she understands things as presented and wishes to proceed. 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 However, this was not bothersome for her and does not want it addressed at this time. Description Of Procedure: The patient was taken to the operating room, placed in the supine position . General anesthesia was easily obtained by the anesthesia staff. Following this, a well-padded tomasz rniquet was placed on her superior right arm. Right upper extremity was then prepped and draped in u sual sterile fashion for procedure. Following this, attention was first turned to the trigger digit. Her fourth finger very easily locks on examination and a standard incision was made just distal to wrist crease carefully through skin only. Meticulous hemostasis being maintained using bipolar elect rocautery. This was then spread using finger pressure. The tendon is encountered. It does appear t o be quite edematous and the A1 eddy is released. The finger was then brought through range of mot ion and still has a very slight . Attention was then turned to the most inferior portion o f the A2 eddy did not appear to be locking there and a tiny amount was released. Attention was the n turned further distally and it appears that the A1 eddy was released. However, there does appear to be some tightness of the sheath. This was then released in line and continues until movement of the finger no longer demonstrates any locking. This was checked multiple times, but attention was tu rned to the carpal tunnel. A standard incision was made, which paralleled the thenar crease with sli ght ulnar deviation. The most distal wrist crease was taken down carefully through skin only. Metic ulous hemostasis being maintained using bipolar electrocautery. The palmar fascia was then divided l ongitudinally and any obstruction of the transverse carpal ligament was then swept gently to the side . A small demetrio was made in the transverse carpal ligament. It was then released from proximal to di stal direction until there were no constricting bands. It was then released from a distal to proxima l direction until no constricting bands including a significant amount of volar forearm fascia. The nerve was examined from the continuity throughout. Attention was then turned back to the trigger dig it is cycled through multiple times of flexion-extension with no sign of locking and following this, both incisions were then closed using nylon sutures. The patient was placed in a well-padded sterile dressing, awakened, and taken to recovery in good condition. There were no complications. SE/MODL Voice ID: [id number] Report ID: [id number]
== END 2024-06-05 12:00 | disposition home or self-care (01) ==
LOC: OR 07:55
PROVIDERS: ATTEND Orthopaedic Surgery
PROC: 0LN70ZZ Release Right Hand Tendon, Open Approach (ICD-10-PCS; 2024-06-05)
PROC: 01N50ZZ Release Median Nerve, Open Approach (ICD-10-PCS; principal; 2024-06-05 09:30)
DX: G56.01 Carpal tunnel syndrome, right upper limb (principal); M65.341 Trigger finger, right ring finger
CPT/HCPCS: 93005; 85025; 80048; 36415; 64721; 26055; J2704; J2003; J3010; J1171 ×2; J2405; J7120; J0690